=== PATIENT | female | born 1945 | race American Indian/Alaskan Native ===

== ENCOUNTER 2018-12-13 16:01 | Inpatient (IN) | payer MEDICARE, MEDICAID ==
[2018-12-13] MEDS ORDERED: ZOFRAN IV ONE (16:46)
[2018-12-13] MEDS ORDERED: ALUM-MAG HYDROX-SIMETH 200-200-20MG/5ML PO ONE (16:46)
[2018-12-13] MEDS ORDERED: LIDOCAINE VISCOUS 2% PO ONE (16:46)
--- NOTE | 2018-12-13 16:51 | Emergency Department Report ---
ED Chest Pain HPI - General Chief Complaint: Chest Pain Stated Complaint: CHEST PAIN Time Seen by Provider: 12/13/18 16:09 Source: patient Mode of arrival: Stretcher Limitations: No Limitations - History of Present Illness Initial Comments: 73-year-old female presents to ED with chest pain and upper abdominal pain onset 3 hours ago. Patient states pain feels as if pain is traveling across the top of her stomach over to the left side. Patient reports onset of pain approximately 30 minutes after eating a corey egg and cheese biscuit from [employer]. Patient also states that her caregiver brought her an iced coffee from there also, which she had for the first time today. Patient states it feels as if her stomach is full of gas. She reports it as an aching feeling. Reports nausea, no vomiting, no diarrhea. Patient states she drank some arabella nahomy, but that did not help. Patient reports she was recently diagnosed with DVT approximately one month ago, for which she takes Xarelto. Denies shortness of breath. PCP: Dr Jim FAGAN Complaint: chest pain -: hour(s) (3) Onset: after eating Pain Location: left chest, epigastric Severity: moderate Quality: aching Consistency: constant Improves With: nothing Worsens With: nothing re: nausea. denies: vomting, diaphoresis, dyspnea Other Symptoms: burping. denies: cough, fever, syncope, leg swelling Treatments Prior to Arrival: other (arabella nahomy) - Related Data Home Medications Medication Instructions Recorded Confirmed Last Taken Aspirin [Aspirin BABY CHEW TAB] 81 mg PO DAILY 09/05/14 10/02/14 10/01/14 Clopidogrel Bisulfate [Plavix] 75 mg PO DAILY 09/05/14 10/02/14 09/24/14 Glimepiride 4 mg PO BID 09/05/14 10/02/14 10/01/14 Losartan/Hydrochlorothiazide 1 tab PO DAILY 09/05/14 10/02/14 10/02/14 05:00 [Hyzaar 100-25 TAB] Rosuvastatin (Nf) [Crestor] 5 mg PO DAILY 09/05/14 10/02/14 10/01/14 Saxagliptin HCl [Onglyza] 5 mg PO DAILY 09/05/14 10/02/14 10/01/14 Previous Rx's Medication Instructions Recorded Last Taken Type HYDROcodone/APAP 5-325 [[place] 1 each PO Q6HR PRN #30 tablet 10/02/14 Unknown Rx 5-325 mg TAB] Ibuprofen [Motrin] 800 mg PO TID PRN #60 tablet 10/02/14 Unknown Rx Allergies Allergy/AdvReac Type Severity Reaction Status Date / Time codeine AdvReac Unknown Unknown Verified 09/05/14 09:01 Heart Score - HEART Score History: Slightly suspicious EKG: Normal Age: > 65 Risk factors: 1-2 risk factors Troponin: < normal limit HEART Score: 3 ED Review of Systems ROS: Stated complaint: CHEST PAIN Other details as noted in HPI Comment: All other systems reviewed and negative Constitutional: denies: chills, fever Respiratory: denies: shortness of breath Cardiovascular: chest pain Gastrointestinal: abdominal pain, nausea. denies: vomiting, diarrhea ED Past Medical Hx - Past Medical History Hx Hypertension: Yes Hx Heart Attack/AMI: No Hx Diabetes: Yes (SINCE 1984) Hx GERD: Yes Hx Asthma: No Additional medical history: colon ca (2010), uterine ca - Surgical History Past Surgical History?: Yes Additional Surgical History: colectomy, hysterectomy, hernia repair - Social History Smoking Status: Never Smoker Substance Use Type: None - Medications Home Medications: Home Medications Medication Instructions Recorded Confirmed Last Taken Type Aspirin [Aspirin BABY CHEW TAB] 81 mg PO DAILY 09/05/14 10/02/14 10/01/14 History Clopidogrel Bisulfate [Plavix] 75 mg PO DAILY 09/05/14 10/02/14 09/24/14 History Glimepiride 4 mg PO BID 09/05/14 10/02/14 10/01/14 History Losartan/Hydrochlorothiazide 1 tab PO DAILY 09/05/14 10/02/14 10/02/14 05:00 History [Hyzaar 100-25 TAB] Rosuvastatin (Nf) [Crestor] 5 mg PO DAILY 09/05/14 10/02/14 10/01/14 History Saxagliptin HCl [Onglyza] 5 mg PO DAILY 09/05/14 10/02/14 10/01/14 History HYDROcodone/APAP 5-325 [[place] 1 each PO Q6HR PRN #30 tablet 10/02/14 Unknown Rx 5-325 mg TAB] Ibuprofen [Motrin] 800 mg PO TID PRN #60 tablet 10/02/14 Unknown Rx ED Physical Exam - General Limitations: No Limitations General appearance: alert, in no apparent distress - Head Head exam: Present: atraumatic, normocephalic - Eye Eye exam: Present: normal appearance - ENT ENT exam: Present: mucous membranes moist - Neck Neck exam: Present: normal inspection - Respiratory Respiratory exam: Present: normal lung sounds bilaterally. Absent: respiratory distress - Cardiovascular Cardiovascular Exam: Present: normal rhythm, bradycardia - GI/Abdominal GI/Abdominal exam: Present: soft. Absent: distended, tenderness - Extremities Exam Extremities exam: Present: normal inspection - Neurological Exam Neurological exam: Present: alert, oriented X3 - Psychiatric Psychiatric exam: Present: normal affect, normal mood - Skin Skin exam: Present: warm, dry, intact, normal color ED Course Vital Signs 12/13/18 12/13/18 12/13/18 17:25 17:27 17:29 Pulse Rate 87 70 64 Respiratory 21 24 14 Rate Blood Pressure 146/102 146/102 146/102 12/13/18 12/13/18 12/13/18 17:31 17:33 17:35 Pulse Rate 58 L 58 L 57 L Respiratory 17 22 15 Rate Blood Pressure 146/102 146/102 146/102 12/13/18 12/13/18 12/13/18 17:37 17:39 17:41 Pulse Rate 55 L 53 L 52 L Respiratory 12 9 L 13 Rate Blood Pressure 146/102 146/102 146/102 12/13/18 12/13/18 12/13/18 17:43 17:45 17:47 Pulse Rate 52 L 52 L 53 L Respiratory 12 14 10 L Rate Blood Pressure 146/102 146/102 146/102 12/13/18 12/13/18 12/13/18 17:49 17:51 17:53 Pulse Rate 55 L 53 L 61 Respiratory 12 16 18 Rate Blood Pressure 146/102 146/102 146/102 12/13/18 12/13/18 12/13/18 17:55 17:57 17:59 Pulse Rate 64 70 57 L Respiratory 11 L 22 15 Rate Blood Pressure 146/102 146/102 146/102 12/13/18 12/13/18 12/13/18 18:01 18:03 18:05 Pulse Rate 53 L 53 L 54 L Respiratory 14 13 14 Rate Blood Pressure 146/102 146/102 146/102 12/13/18 12/13/18 12/13/18 18:07 18:09 18:10 Pulse Rate 54 L 58 L 57 L Respiratory 15 14 21 Rate Blood Pressure 146/102 146/102 146/102 12/13/18 12/13/18 12/13/18 18:13 18:15 18:17 Pulse Rate 71 74 64 Respiratory 18 15 20 Rate Blood Pressure 146/102 146/102 146/102 12/13/18 12/13/18 12/13/18 18:19 18:21 18:23 Pulse Rate 54 L 53 L 53 L Respiratory 13 14 12 Rate Blood Pressure 146/102 146/102 146/102 12/13/18 12/13/18 12/13/18 18:25 18:27 18:29 Pulse Rate 57 L 53 L 56 L Respiratory 14 14 10 L Rate Blood Pressure 146/102 146/102 146/102 12/13/18 12/13/18 12/13/18 18:31 18:33 18:35 Pulse Rate 58 L 61 62 Respiratory 11 L 9 L 13 Rate Blood Pressure 146/102 146/102 146/102 12/13/18 12/13/18 12/13/18 18:37 18:39 18:41 Pulse Rate 62 66 55 L Respiratory 17 13 15 Rate Blood Pressure 146/102 146/102 146/102 12/13/18 12/13/18 12/13/18 18:43 18:45 18:47 Pulse Rate 61 54 L 59 L Respiratory 14 16 16 Rate Blood Pressure 146/102 146/102 146/102 12/13/18 12/13/18 12/13/18 18:49 18:51 18:53 Pulse Rate 62 55 L 60 Respiratory 13 12 15 Rate Blood Pressure 146/102 146/102 146/102 12/13/18 12/13/18 12/13/18 18:55 18:57 18:59 Pulse Rate 56 L 56 L 63 Respiratory 18 13 15 Rate Blood Pressure 146/102 146/102 146/102 12/13/18 12/13/18 12/13/18 19:01 19:03 19:05 Pulse Rate 56 L 54 L 54 L Respiratory 15 12 10 L Rate Blood Pressure 146/102 146/102 146/102 12/13/18 12/13/18 12/13/18 19:15 19:17 19:19 Pulse Rate 57 L 53 L 52 L Respiratory 14 17 16 Rate Blood Pressure 151/70 151/70 151/70 - Consultations Consultation #1: 12/14/18 00:43 Spoke w/ Dr Nair. States pt should be admitted for removal of gallbladder. ED Medical Decision Making - Lab Data Result diagrams: 12/13/18 16:52 12/13/18 16:52 - EKG Data -: EKG Interpreted by Oh EKG shows normal: sinus rhythm, axis, intervals, QRS complexes, ST-T waves Rate: normal - EKG Data Interpretation: no acute changes, LVH - Radiology Data Radiology results: report reviewed, image reviewed - Medical Decision Making 73-year-old female also pancreatitis. The patient became symptomatic after eating corey and cheese biscuit at and jugular denies coffee from [employer]. Lipase 1700. CT shows a gallbladder with multiple gallstones present, mild cholecystectomy fluid, no biliary dilatation. LFTs normal, patient afebrile, normal WBCs. Spoke with general surgeon, plans to take pt to OR for cholecystectomy. Patient is pain free at this time. Spoke w/ Dr Steen, hospitalist, for admission. - Differential Diagnosis bowel obstruction, pancreatitis, gallstones, ACS Critical care attestation.: If time is entered above; I have spent that time in minutes in the direct care of this critically ill patient, excluding procedure time. ED Disposition Clinical Impression: Pancreatitis, gallstone Disposition: OP ADMIT IP TO THIS HOSP Is pt being admited?: Yes Condition: Stable Referrals: JUANITA HARRIS MD [Primary Care Provider] - 3-5 Days Time of Disposition: 00:44
[2018-12-13 17:07] LABS: Basophils # (Auto) 0.1 K/mm3 (0.0-0.1); Basophils % (Auto) 0.6 % (0.0-1.8); Eosinophils % (Auto) 0.3 % (0.0-4.3); Hematocrit 39.6 % (30.3-42.9); Hemoglobin 13.1 gm/dl (10.1-14.3); Lymphocytes # (Auto) 1.1 K/mm3 (1.2-5.4); Lymphocytes % (Auto) 10.2 % (13.4-35.0); Mean Corpuscular HGB Conc 33 % (30-34); Mean Corpuscular Volume 86 fl (79-97); Monocytes # (Auto) 0.9 K/mm3 (0.0-0.8); Monocytes % (Auto) 8.4 % (0.0-7.3); Platelet Count 263 K/mm3 (140-440)
[2018-12-13 17:19] LABS: BUN/Creatinine Ratio 17; Blood Urea Nitrogen 17 mg/dL (7-17); Calcium 9.3 mg/dL (8.4-10.2); Hemolysis Index 35; INR 1.45 (0.87-1.13)
[2018-12-13 17:20] LABS: Partial Thromboplastin Time 54.5 Sec. (24.2-36.6)
[2018-12-13 17:21] LABS: Albumin 4.2 g/dL (3.9-5); Bilirubin,Direct 0.7 mg/dL (0-0.2)
[2018-12-13] MEDS ORDERED: TORADOL IV ONE (18:22)
[2018-12-13] MEDS ORDERED: NACL 0.9% 1000 ML 1,000 ML IV ONE (18:23)
--- NOTE | 2018-12-13 21:22 | XRay Report ---
FINAL REPORT PROCEDURE: XR ABD SERIES W CXR 1V TECHNIQUE: Abdominal series complete, including supine and upright AP views of the abdomen and front al chest. HISTORY: pain COMPARISON: No prior studies are available for comparison. FINDINGS: Heart: Normal. Mediastinum/Vessels: Normal. Lungs/Pleural space: A large hiatal hernia is noted. Bowel gas pattern: Mild degree residual stool is noted. Intestinal gas is distributed predominantly i n nondistended colon.. Masses or calcifications: None. Bony structures: There is moderate degree dextroscoliosis of the thoracolumbar spine. Other: No free intraperitoneal air. IMPRESSION: No acute pulmonary process Nonspecific intestinal gas pattern Large hiatal hernia.
[2018-12-14] MEDS ORDERED: BENTYL IM ONE (00:07)
--- NOTE | 2018-12-14 00:09 | Cat Scan Report ---
FINAL REPORT PROCEDURE: CT ABDOMEN PELVIS W CON TECHNIQUE: Computerized axial tomography of the abdomen and pelvis was performed after the IV inject ion of iodinated nonionic contrast. HISTORY: abd pain COMPARISON: No prior studies are available for comparison. FINDINGS: Visualized lower thorax: No significant abnormality. Liver: Normal size and attenuation. Spleen: Normal size and attenuation. Gallbladder and biliary system: Multiple stones identified within the gallbladder lumen. Mild there c holecystic fluid is noted. No dilatation of the biliary ductal system. Pancreas: Normal. Adrenals: Normal. Kidneys: The kidneys have a normal appearance. No hydronephrosis.. GI tract: A large hiatal hernia is identified. No obstruction. The cecum, appendix and colon are norm al.. Lymph nodes and mesentery: Normal. Vasculature: Normal. Bladder: Normal. Reproductive organs: Normal. Peritoneum: No free fluid. Musculoskeletal structures: Moderate degenerative changes of spine there is mild left convex mid lumb ar curvature.. Other: None. IMPRESSION: There is no evidence of intestinal or urinary tract obstruction. No ileus or enteritis. There is a la rge fixed hiatal hernia. Cholelithiasis. Mild pericholecystic fluid is noted.
--- NOTE | 2018-12-14 02:32 | History and Physical Report ---
History of Present Illness Date of examination: 12/14/18 History of present illness: 73-year-old woman with history of hypertension, diabetes, uterine cancer, colon cancer, recent DVT comes to the emergency room with complaints of abdominal pain located in the epigastric area described as a hurting sensation, constant, started this morning after eating biscuit cheese and egg [place] from [employer]. Pain radiates to the left upper quadrant, left back, associated with nausea, intensity 5/10 Review of systems Constitutional: no weight loss, chills, fever Ears, eyes, nose, mouth and throat: no nasal congestion, no nasal discharge, no sinus pressure, no vision change, no red eye. Neck: No neck pain or rigidity. Cardiovascular: no palpitations, chest pain Respiratory: no cough, shortness of breath Gastrointestinal: no hematochezia Genitourinary : no frequency , no hematuria Musculoskeletal: no joint swelling or muscle ache Integumentary: no rash, no pruritis Neurological: no parathesias, no focal weakness Endocrine: no cold or heat intolerance, no polyuria or polydipsia Hematologic/Lymphatic: no easy bruising, no easy bleeding, no gland swelling Allergic/Immunologic: no urticaria, no angioedema. PAST MEDICAL HISTORY:hypertension, diabetes, uterine cancer, colon cancer PAST SURGICAL HISTORY: Colectomy, hysterectomy, hernia repair SOCIAL HISTORY: Denies alcohol, drugs, tobacco FAMILY HISTORY: Hypertension Medications and Allergies Allergies Allergy/AdvReac Type Severity Reaction Status Date / Time codeine AdvReac Unknown Unknown Verified 09/05/14 09:01 Home Medications Medication Instructions Recorded Confirmed Last Taken Type Clopidogrel Bisulfate [Plavix] 75 mg PO DAILY 09/05/14 10/02/14 09/24/14 History Glimepiride 4 mg PO BID 09/05/14 10/02/14 10/01/14 History Losartan/Hydrochlorothiazide 1 tab PO DAILY 09/05/14 10/02/14 10/02/14 05:00 History [Hyzaar 100-25 TAB] Rosuvastatin (Nf) [Crestor] 5 mg PO DAILY 09/05/14 10/02/14 10/01/14 History Saxagliptin HCl [Onglyza] 5 mg PO DAILY 09/05/14 10/02/14 10/01/14 History Acetaminophen [Acetaminophen TAB] 650 mg PO Q4H PRN #15 tablet 12/16/18 Unknown Rx HYDROcodone/APAP 5-325 [[place] 1 each PO Q6HR PRN #15 tablet 12/16/18 Unknown Rx 5-325 mg TAB] Rivaroxaban [Xarelto] 20 mg PO QDAY #30 tablet 12/16/18 Unknown Rx Ursodiol [Isabel] 250 mg PO TIDWM 30 Days tablet 12/16/18 Unknown Rx Active Meds: Active Medications Heparin Sodium/Sodium Chloride (Heparin/ 0.45% Nacl-25,000 Unit/500 Ml) 25,000 unit in 500 mls @ 23 mls/hr IV TITR SIMEON; Protocol Exam - Physical Exam Narrative exam: General Apperance: The patient lying in bed, breathing comfortable HEENT: Normocephalic, atraumatic. Pupils equally round and reactive to light, EOMI, no sclericterus or JVD or thyromegaly or nodule. , no carotid bruit, mucous membranes moist, no exudate or erythema Heart: S1-S2, regular is rhythm Lungs: Clear to auscultation bilaterally, breathing comfortable Abdomen: Positive bowel sounds, soft, nontender, nondistended, no organomegaly Extremities: No edema cyanosis clubbing Skin: no rash, nodule, warm and dry Neuro: cranial nerves 2-12 intact, speech is fluent, motor/sensory intact - Constitutional Vitals: Temp Pulse Resp BP Pulse Ox 52 L 16 151/70 12/13/18 19:19 12/13/18 19:19 12/13/18 19:19 Results - Labs CBC & Chem 7: 12/16/18 04:10 12/15/18 05:31 Labs: Abnormal lab results 12/13/18 12/13/18 12/13/18 Range/Units 16:52 16:52 16:52 Lymph % (Auto) 10.2 L (13.4-35.0) % Cros[place] % (Auto) 8.4 H (0.0-7.3) % Lymph # 1.1 L (1.2-5.4) K/mm3 Crosby # 0.9 H (0.0-0.8) K/mm3 Seg Neutrophils % 80.5 H (40.0-70.0) % Seg Neutrophils # 8.8 H (1.8-7.7) K/mm3 PT 18.6 H (12.2-14.9) Sec. INR 1.45 H (0.87-1.13) APTT 54.5 H (24.2-36.6) Sec. Sodium 136 L (137-145) mmol/L Chloride 97.1 L (98-107) mmol/L Glucose 361 H (65-100) mg/dL Direct Bilirubin (0-0.2) mg/dL AST (5-40) units/L Lipase (13-60) units/L 12/13/18 Range/Units 16:52 Lymph % (Auto) (13.4-35.0) % Cros[place] % (Auto) (0.0-7.3) % Lymph # (1.2-5.4) K/mm3 Crosby # (0.0-0.8) K/mm3 Seg Neutrophils % (40.0-70.0) % Seg Neutrophils # (1.8-7.7) K/mm3 PT (12.2-14.9) Sec. INR (0.87-1.13) APTT (24.2-36.6) Sec. Sodium (137-145) mmol/L Chloride (98-107) mmol/L Glucose (65-100) mg/dL Direct Bilirubin 0.7 H (0-0.2) mg/dL AST 59 H (5-40) units/L Lipase 1783 H (13-60) units/L - Imaging and Cardiology Abdominal x-ray: report reviewed CT scan - abdomen: report reviewed CT scan - pelvis: report reviewed Assessment and Plan Assessment Gallstone pancreatitis DVT in the right groin hypertension diabetes uterine cancer colon cancer Plan Admit to medicine Place him bowel rest, IV fluids, IV morphine start heparin drip for DVT Surgery was consulted to see the patient DVT prophylaxis
[2018-12-14 02:39] LABS: INR 1.34 (0.87-1.13)
[2018-12-14 02:40] LABS: Partial Thromboplastin Time 41.5 Sec. (24.2-36.6)
[2018-12-14] MEDS ORDERED: ZOFRAN IV PRN (02:40)
[2018-12-14] MEDS ORDERED: SODIUM CHLORIDE FLUSH SYRINGE 10 ML IV PRN (02:40)
[2018-12-14] MEDS ORDERED: TYLENOL PO PRN (02:40)
[2018-12-14] MEDS ORDERED: MORPHINE IV PRN (02:40)
[2018-12-14] MEDS: HEPARIN/ 0.45% NACL-25,000 UNIT/500 ML 25,000 UNIT/500 ML BAG IV SCH (02:55)
[2018-12-14] MEDS ORDERED: D50W (25GM) Syringe IV PRN ×2 (03:50→17:47)
--- NOTE | 2018-12-14 07:55 | Consultation ---
History of Present Illness Consult date: 12/14/18 Reason for consult: abdominal pain Requesting physician: GRADY LEVINE Chief complaint: acute onset of abdominal pain - History of present illness History of present illness: 73yo F with multiple medical problems presented last night to the emergency department with an acute onset of upper abdominal pain after having lunch from [employer]. She's never had anything like this before. It is located in the upper middle of the abdominal area and extends to the left side. Feels like it's under the left breast. It does go a little bit into the back. Had nausea and vomiting with medication. No fevers or chills. Pain has completely resolved now. She had a bowel movement yesterday which make no difference. She had a hard time finding a comfortable position. She was on Xarelto now for the blood clot that was diagnosed recently. She stopped taking her Plavix at that time. She reports that she was taking Plavix for a previous blood clot for many years. Past History Past Medical History: cancer (colon and uterine), diabetes, DVT (right leg - 1 month ago), GERD, hypertension. denies: acute HI, stroke Past Surgical History: hysterectomy (2014 - Dr. Brice. Uterine cancer), hernia repair (Dr. Elvira Alba. 2014. Right abdominal area-not sure exactly where), bowel surgery (partial colectomy in 2010 - Dr. Restrepo. Stage 3. Had chemotherapy), Other (port placement and removal) Social history: denies: smoking, alcohol abuse Family history: no significant family history Medications and Allergies Allergies Allergy/AdvReac Type Severity Reaction Status Date / Time codeine AdvReac Unknown Unknown Verified 09/05/14 09:01 Home Medications Medication Instructions Recorded Confirmed Last Taken Type Aspirin [Aspirin BABY CHEW TAB] 81 mg PO DAILY 09/05/14 10/02/14 10/01/14 History Clopidogrel Bisulfate [Plavix] 75 mg PO DAILY 09/05/14 10/02/14 09/24/14 History Glimepiride 4 mg PO BID 09/05/14 10/02/14 10/01/14 History Losartan/Hydrochlorothiazide 1 tab PO DAILY 09/05/14 10/02/14 10/02/14 05:00 History [Hyzaar 100-25 TAB] Rosuvastatin (Nf) [Crestor] 5 mg PO DAILY 09/05/14 10/02/14 10/01/14 History Saxagliptin HCl [Onglyza] 5 mg PO DAILY 09/05/14 10/02/14 10/01/14 History HYDROcodone/APAP 5-325 [[place] 1 each PO Q6HR PRN #30 tablet 10/02/14 Unknown Rx 5-325 mg TAB] Ibuprofen [Motrin] 800 mg PO TID PRN #60 tablet 10/02/14 Unknown Rx Active Meds: Active Medications Acetaminophen (Tylenol) 650 mg PO Q4H PRN PRN Reason: Pain MILD(1-3)/Fever >100.5/MONTERO Dextrose (D50w (25gm) Syringe) 50 ml IV PRN PRN PRN Reason: Hypoglycemia Heparin Sodium/Sodium Chloride (Heparin/ 0.45% Nacl-25,000 Unit/500 Ml) 25,000 unit in 500 mls @ 23 mls/hr IV TITR SIMEON; Protocol Last Admin: 12/14/18 02:55 Dose: 1,150 units/hr, 23 mls/hr Documented by: Morphine Sulfate (Morphine) 2 mg IV Q4H PRN PRN Reason: Pain, Moderate (4-6) Ondansetron HCl (Zofran) 4 mg IV Q4H PRN PRN Reason: Nausea And Vomiting Sodium Chloride (Sodium Chloride Flush Syringe 10 Ml) 10 ml IV BID SIMEON Sodium Chloride (Sodium Chloride Flush Syringe 10 Ml) 10 ml IV PRN PRN PRN Reason: LINE FLUSH Review of Systems - Constitutional weakness, no fever, no chills, no chronic pain - Cardiovascular chest pain, no shortness of breath - Respiratory no cough - Gastrointestinal abdominal pain, nausea, vomiting, no diarrhea, no constipation, no change in bowel habits, no hematemesis, no coffee ground emesis, no BRBPR, no melena, no hematochezia - Genitourinary Genitourinary: no dysuria - Muskuloskeletal no low back pain - Integumentary no pruritis, no redness, no sores, no wounds Exam Vital Signs Pulse Resp BP 87 21 146/102 12/13/18 17:25 12/13/18 17:25 12/13/18 17:25 - General physical appearance Positive: no distress, no pain, other (pleasant. does not appear ill) - Eyes Positive: normal occular movement. Negative: icteric - Respiratory Positive: normal expansion, normal respiratory effort, clear to auscultation - Cardiovascular Rhythm: regular - Abdomen Abdomen: Present: soft, bowel sounds normal, surgical scars (well healed midline incision. Unable to clearly find incision from right abdominal wall hernia repair.). Absent: tender, distended, guarding, rigid, wound - Integumentary no rash, no growths, no abnormal pigmentation - Neurologic Neurologic: alert and oriented to time, place and person, motor strength and sensation are grossly intact - Psychiatric Psychiatric: appropriate mood/affect, intact judgment & insight Results - Labs 12/13/18 16:52 12/13/18 16:52 Abnormal lab results 12/13/18 12/13/18 12/13/18 Range/Units 16:52 16:52 16:52 Lymph % (Auto) 10.2 L (13.4-35.0) % [place] % (Auto) 8.4 H (0.0-7.3) % Lymph # 1.1 L (1.2-5.4) K/mm3 [place] # 0.9 H (0.0-0.8) K/mm3 Seg Neutrophils % 80.5 H (40.0-70.0) % Seg Neutrophils # 8.8 H (1.8-7.7) K/mm3 PT 18.6 H (12.2-14.9) Sec. INR 1.45 H (0.87-1.13) APTT 54.5 H (24.2-36.6) Sec. Sodium 136 L (137-145) mmol/L Chloride 97.1 L (98-107) mmol/L Glucose 361 H (65-100) mg/dL Direct Bilirubin (0-0.2) mg/dL AST (5-40) units/L Lipase (13-60) units/L 12/13/18 12/14/18 Range/Units 16:52 02:13 Lymph % (Auto) (13.4-35.0) % [place] % (Auto) (0.0-7.3) % Lymph # (1.2-5.4) K/mm3 Walker # (0.0-0.8) K/mm3 Seg Neutrophils % (40.0-70.0) % Seg Neutrophils # (1.8-7.7) K/mm3 PT 17.4 H (12.2-14.9) Sec. INR 1.34 H (0.87-1.13) APTT 41.5 H (24.2-36.6) Sec. Sodium (137-145) mmol/L Chloride (98-107) mmol/L Glucose (65-100) mg/dL Direct Bilirubin 0.7 H (0-0.2) mg/dL AST 59 H (5-40) units/L Lipase 1783 H (13-60) units/L Diabetes panel 12/13/18 12/13/18 Range/Units 16:52 16:52 Sodium 136 L (137-145) mmol/L Potassium 4.5 (3.6-5.0) mmol/L Chloride 97.1 L (98-107) mmol/L Carbon Dioxide 23 (22-30) mmol/L BUN 17 (7-17) mg/dL Creatinine 1.0 (0.7-1.2) mg/dL Glucose 361 H (65-100) mg/dL Calcium 9.3 (8.4-10.2) mg/dL AST 59 H (5-40) units/L ALT 25 (7-56) units/L Alkaline Phosphatase 89 (35-129) units/L Total Protein 7.8 (6.3-8.2) g/dL Albumin 4.2 (3.9-5) g/dL Calcium panel 12/13/18 12/13/18 Range/Units 16:52 16:52 Calcium 9.3 (8.4-10.2) mg/dL Albumin 4.2 (3.9-5) g/dL Pituitary panel 12/13/18 Range/Units 16:52 Sodium 136 L (137-145) mmol/L Potassium 4.5 (3.6-5.0) mmol/L Chloride 97.1 L (98-107) mmol/L Carbon Dioxide 23 (22-30) mmol/L BUN 17 (7-17) mg/dL Creatinine 1.0 (0.7-1.2) mg/dL Glucose 361 H (65-100) mg/dL Calcium 9.3 (8.4-10.2) mg/dL Adrenal panel 12/13/18 12/13/18 Range/Units 16:52 16:52 Sodium 136 L (137-145) mmol/L Potassium 4.5 (3.6-5.0) mmol/L Chloride 97.1 L (98-107) mmol/L Carbon Dioxide 23 (22-30) mmol/L BUN 17 (7-17) mg/dL Creatinine 1.0 (0.7-1.2) mg/dL Glucose 361 H (65-100) mg/dL Calcium 9.3 (8.4-10.2) mg/dL Total Bilirubin 1.10 (0.1-1.2) mg/dL AST 59 H (5-40) units/L ALT 25 (7-56) units/L Alkaline Phosphatase 89 (35-129) units/L Total Protein 7.8 (6.3-8.2) g/dL Albumin 4.2 (3.9-5) g/dL - Imaging Chest x-ray: report reviewed, image reviewed Abdominal x-ray: report reviewed, image reviewed CT scan - abdomen: report reviewed, image reviewed CT scan - pelvis: report reviewed, image reviewed Assessment and Plan - Patient Problems (1) Pancreatitis, gallstone Current Visit: Yes Status: Acute Plan to address problem: Pt stable. By history and exam, patient appears to have had very mild pancreatitis. Her symptoms have resolved. I will start her on a liquid diet. The CT scan shows minimal gallstones. Will get a formal ultrasound to get a better assessment. Labs will be repeated in the morning to reassess her pancreatitis. As for management, once the ultrasound is done and I have a better assessment of the gallbladder, I will discuss surgical versus medical options with her. Normally for gallstone pancreatitis, we would recommend cholecystectomy. However, in this case, patient is apprehensive about surgery. Therefore, we will also discuss possible medical management with Ursodiol. She also has apparently asymptomtic hernias at the midline incision and hiatus. Neither need to be addressed at this time. If we decide on surgery, she will need cardiac clearance. She reports that she sees Dr. Jerome. As for anticoagulation, consideration could be given to bridging her with james enox instead of heparin to make the management easier. Will follow along. Please call with questions. Time=45min
[2018-12-14 08:58] LABS: Calcium 8.9 mg/dL (8.4-10.2)
[2018-12-14 08:59] LABS: Basophils # (Auto) 0.1 K/mm3 (0.0-0.1); Basophils % (Auto) 0.8 % (0.0-1.8); Eosinophils # (Auto) 0.1 K/mm3 (0.0-0.4); Eosinophils % (Auto) 0.8 % (0.0-4.3); Hematocrit 35.7 % (30.3-42.9); Hemoglobin 12.3 gm/dl (10.1-14.3); Lymphocytes % (Auto) 25.7 % (13.4-35.0); Mean Corpuscular HGB Conc 34 % (30-34); Mean Corpuscular Volume 85 fl (79-97); Monocytes # (Auto) 0.7 K/mm3 (0.0-0.8); Monocytes % (Auto) 9.6 % (0.0-7.3); Platelet Count 247 K/mm3 (140-440); Red Blood Count 4.18 M/mm3 (3.65-5.03)
[2018-12-14] MEDS: SODIUM CHLORIDE FLUSH SYRINGE 10 ML IV SCH ×2 (10:00→22:29)
--- NOTE | 2018-12-14 17:46 | Progress Note ---
Assessment and Plan Assessment and plan: Patient is a 73 yo woman with history of hypertension, DM type 2, uterine cancer, colon cancer, DVT dx 1 month ago on Xarelto who presented to [facility] ED with abdominal pain that started after eating biscuit egg and cheese [place] from [employer]. * CT abd/pelvis with Contrast IMPRESSION: There is no evidence of intestinal or urinary tract obstruction. No ileus or enteritis. There is a large fixed hiat al hernia. Cholelithiasis. Mild pericholecystic fluid is noted. * pCXR/Abd XRAY IMPRESSION: No acute pulmonary process Nonspecific intestinal gas pattern Large hiatal hernia. Gallstone pancreatitis: bowel rest, iv pain control, ivf, consulted GS DVT in the right groin: A/C with iv heparin until she starts a diet then switch back to Xarelto Hypertension: low salt diet Diabetes Mellitus type 2: SSI Uterine and colon cancer by history with hypercoaguable state prolonged inpatient services 32 minutes History Interval history: Patient was seen and examined. Follow-up on current diagnosis GS pancreatitis. Overnight uneventful. Patient denies any chest pain, shortness breath, or severe headaches. Imaging, nursing note, chart, labs and old chart reviewed. Discussed with patient. Hospitalist Physical - Physical exam Narrative exam: Gen: WDWN, NAD, Awake, Alert, Orientated HEENT: NCAT, EOMI, PERRL, OP Clear Neck: supple, no adenopathy, no thyromegaly, no JVD CVS/Heart: RRR, normal S1S2, pulses present bilaterally Chest/Lungs: CTA B, Symmetrical chest expansion, good air entry bilaterally GI/Abdomen: soft, tenderness not distended, good bowel sounds, no rebound /Bladder: no suprapubic tenderness, no CVA or paraspinal tenderness Extermity/Skin: no c/c/e, no obvious rash MSK: FROM x 4 Neuro: CN 2-12 grossly intact, no new focal deficits Psych: calm - Constitutional Vitals: Temp Pulse Resp BP Pulse Ox 98.2 F 65 18 141/59 99 12/14/18 15:45 12/14/18 15:45 12/14/18 15:45 12/14/18 15:45 12/14/18 15:45 Results - Labs CBC & Chem 7: 12/14/18 08:37 12/14/18 08:37 Labs: Laboratory Last Values WBC 7.7 K/mm3 (4.5-11.0) 12/14/18 08:37 RBC 4.18 M/mm3 (3.65-5.03) 12/14/18 08:37 Hgb 12.3 gm/dl (10.1-14.3) 12/14/18 08:37 Hct 35.7 % (30.3-42.9) 12/14/18 08:37 MCV 85 fl (79-97) 12/14/18 08:37 MCH 29 pg (28-32) 12/14/18 08:37 MCHC 34 % (30-34) 12/14/18 08:37 RDW 14.0 % (13.2-15.2) 12/14/18 08:37 Plt Count 247 K/mm3 (140-440) 12/14/18 08:37 Lymph % (Auto) 25.7 % (13.4-35.0) 12/14/18 08:37 [place] % (Auto) 9.6 % (0.0-7.3) H 12/14/18 08:37 Eos % (Auto) 0.8 % (0.0-4.3) 12/14/18 08:37 Baso % (Auto) 0.8 % (0.0-1.8) 12/14/18 08:37 Lymph # 2.0 K/mm3 (1.2-5.4) 12/14/18 08:37 [place] # 0.7 K/mm3 (0.0-0.8) 12/14/18 08:37 Eos # 0.1 K/mm3 (0.0-0.4) 12/14/18 08:37 Baso # 0.1 K/mm3 (0.0-0.1) 12/14/18 08:37 Seg Neutrophils % 63.1 % (40.0-70.0) 12/14/18 08:37 Seg Neutrophils # 4.9 K/mm3 (1.8-7.7) 12/14/18 08:37 PT 17.4 Sec. (12.2-14.9) H 12/14/18 02:13 INR 1.34 (0.87-1.13) H 12/14/18 02:13 APTT 41.5 Sec. (24.2-36.6) H 12/14/18 02:13 Heparin Anti-Xa Level 0.75 U.I./ml (0.3-0.7) H 12/14/18 16:10 Sodium 138 mmol/L (137-145) 12/14/18 08:37 Potassium 3.8 mmol/L (3.6-5.0) 12/14/18 08:37 Chloride 101.8 mmol/L (98-107) 12/14/18 08:37 Carbon Dioxide 23 mmol/L (22-30) 12/14/18 08:37 Anion Gap 17 mmol/L 12/14/18 08:37 BUN 17 mg/dL (7-17) 12/14/18 08:37 Creatinine 1.1 mg/dL (0.7-1.2) 12/14/18 08:37 Estimated GFR 59 ml/min 12/14/18 08:37 BUN/Creatinine Ratio 15 % 12/14/18 08:37 Glucose 231 mg/dL (65-100) H 12/14/18 08:37 POC Glucose 225 (70-105) H 12/14/18 11:54 Calcium 8.9 mg/dL (8.4-10.2) 12/14/18 08:37 Total Bilirubin 1.10 mg/dL (0.1-1.2) 12/13/18 16:52 Direct Bilirubin 0.7 mg/dL (0-0.2) H 12/13/18 16:52 Indirect Bilirubin 0.4 mg/dL 12/13/18 16:52 AST 59 units/L (5-40) H 12/13/18 16:52 ALT 25 units/L (7-56) 12/13/18 16:52 Alkaline Phosphatase 89 units/L (35-129) 12/13/18 16:52 Troponin T < 0.010 ng/mL (0.00-0.029) 12/13/18 22:48 Total Protein 7.8 g/dL (6.3-8.2) 12/13/18 16:52 Albumin 4.2 g/dL (3.9-5) 12/13/18 16:52 Albumin/Globulin Ratio 1.2 % 12/13/18 16:52 Lipase 1783 units/L (13-60) H 12/13/18 16:52 Nutrition/Malnutrition Assess - Dietary Evaluation Nutrition/Malnutrition Findings: Nutrition Notes Start: 12/14/18 13:53 Freq: Status: Active Protocol: Document 12/14/18 13:53 RM (Rec: 12/14/18 13:55 RM [id number]) Nutrition Notes [place] Body Weight (kg) 0
--- NOTE | 2018-12-14 22:32 | Ultrasound Report ---
PROCEDURE: US ABDOMEN LIMITED TECHNIQUE: Routine imaging was obtained of the right upper quadrant. HISTORY: evaluate gallbladder and biliary system COMPARISONS: None FINDINGS: There are multiple dependent stones in the gallbladder fundus. There is generalized gallbladder wall thickening measuring 6 mm in thickness. There is pericholecystic fluid around the gallbladder. A Murp hy's sign was not elicited. The common bile duct is normal caliber at 3.9 mm. The liver is normal in size and echotexture. The pancreas is not well seen. The right kidney is normal in size and shows no evidence of hydronephrosis. It measures 9.7 x 4.2 x 3.6 cm. The IVC is patent. Proximally the abdomin al aorta is normal in caliber. IMPRESSION: Gallstones with generalized gallbladder wall thickening and mild pericholecystic fluid. A Montelongo's si gn was not elicited. Chronic cholecystitis still cannot be excluded.. This document is electronically signed by Gary Gonzalez MD., December 14 2018 10:30:03 PM ET
[2018-12-15] MEDS: HumaLOG SUB-Q SCH ×5 (00:11→23:03)
[2018-12-15] MEDS: HEPARIN/ 0.45% NACL-25,000 UNIT/500 ML 25,000 UNIT/500 ML BAG IV SCH (01:52)
[2018-12-15 06:37] LABS: Hematocrit 36.5 % (30.3-42.9); Hemoglobin 12.1 gm/dl (10.1-14.3); Mean Corpuscular HGB Conc 33 % (30-34); Mean Corpuscular Volume 87 fl (79-97); Platelet Count 239 K/mm3 (140-440); Red Blood Count 4.22 M/mm3 (3.65-5.03); Red Cell Distribution Width 14.2 % (13.2-15.2)
[2018-12-15 06:59] LABS: Albumin 3.4 g/dL (3.9-5); Calcium 8.8 mg/dL (8.4-10.2)
--- NOTE | 2018-12-15 08:28 | Progress Note ---
Assessment and Plan - Patient Problems (1) Pancreatitis, gallstone Current Visit: Yes Status: Acute Plan to address problem: Pt stable. Lipase has normalized. Patient continues to have no abdominal pain or nausea or vomiting. She is tolerating liquid diet. We discussed medical versus surgical therapy for the gallstone pancreatitis. After answering her questions and discussing the risks and benefits, we have decided to try medical therapy 1st. I will order Actigall to start today. Her LFTs did go up today. I think this is a delayed effect of having a brief blockage. As she is asymptomatic, will hold off on MRCP/ERCP. I will recheck the labs tomorrow. I expect that they should come down over the weekend. Once they are coming down and we are sure that she is tolerating the new medicine, her diet may be advanced and she may be discharged home. She also has apparently asymptomtic hernias at the midline incision and hiatus. Neither need to be addressed at this time. If we decide on surgery, she will need cardiac clearance. She reports that she sees Dr. Jerome. As for anticoagulation, consideration could be given to bridging her with lovenox instead of heparin to make the management easier. Discussed with Dr. Harris Will follow along. Please call with questions. Time=15min Subjective Date of service: 12/15/18 Patient Reports: Positive: no new complaints, tolerating liquids well, other (no abdominal pain). Negative: nausea, vomiting Objective Vital Signs - 12hr 12/14/18 12/15/18 12/15/18 21:13 00:06 00:21 Temperature 97.8 F Pulse Rate 45 L 49 L Respiratory 20 18 Rate Blood Pressure 135/59 123/57 O2 Sat by Pulse 99 96 97 Oximetry 12/15/18 12/15/18 04:27 06:58 Temperature 97.8 F 97.8 F Pulse Rate 48 L 55 L Respiratory 20 22 Rate Blood Pressure 132/60 148/59 O2 Sat by Pulse 97 97 Oximetry - General physical appearance no distress, no pain, other (looks well) - Eyes normal occular movement - Respiratory normal expansion, normal respiratory effort - Abdomen soft, not tender, not distended, not guarding, not rigid - Psychiatric oriented to time, oriented to person, oriented to place, speech is normal, memory intact - Labs 12/15/18 05:31 12/15/18 05:31 Diabetes panel 12/14/18 12/15/18 Range/Units 08:37 05:31 Sodium 138 140 (137-145) mmol/L Potassium 3.8 3.9 (3.6-5.0) mmol/L Chloride 101.8 104.1 (98-107) mmol/L Carbon Dioxide 23 23 (22-30) mmol/L BUN 17 12 (7-17) mg/dL Creatinine 1.1 1.2 (0.7-1.2) mg/dL Glucose 231 H 136 H (65-100) mg/dL Calcium 8.9 8.8 (8.4-10.2) mg/dL AST 208 H (5-40) units/L ALT 249 H (7-56) units/L Alkaline Phosphatase 84 (35-129) units/L Total Protein 6.6 (6.3-8.2) g/dL Albumin 3.4 L (3.9-5) g/dL Calcium panel 12/14/18 12/15/18 Range/Units 08:37 05:31 Calcium 8.9 8.8 (8.4-10.2) mg/dL Albumin 3.4 L (3.9-5) g/dL Pituitary panel 12/14/18 12/15/18 Range/Units 08:37 05:31 Sodium 138 140 (137-145) mmol/L Potassium 3.8 3.9 (3.6-5.0) mmol/L Chloride 101.8 104.1 (98-107) mmol/L Carbon Dioxide 23 23 (22-30) mmol/L BUN 17 12 (7-17) mg/dL Creatinine 1.1 1.2 (0.7-1.2) mg/dL Glucose 231 H 136 H (65-100) mg/dL Calcium 8.9 8.8 (8.4-10.2) mg/dL Adrenal panel 12/14/18 12/15/18 Range/Units 08:37 05:31 Sodium 138 140 (137-145) mmol/L Potassium 3.8 3.9 (3.6-5.0) mmol/L Chloride 101.8 104.1 (98-107) mmol/L Carbon Dioxide 23 23 (22-30) mmol/L BUN 17 12 (7-17) mg/dL Creatinine 1.1 1.2 (0.7-1.2) mg/dL Glucose 231 H 136 H (65-100) mg/dL Calcium 8.9 8.8 (8.4-10.2) mg/dL Total Bilirubin 1.60 H (0.1-1.2) mg/dL AST 208 H (5-40) units/L ALT 249 H (7-56) units/L Alkaline Phosphatase 84 (35-129) units/L Total Protein 6.6 (6.3-8.2) g/dL Albumin 3.4 L (3.9-5) g/dL - Imaging US - abdomen: report reviewed, image reviewed
[2018-12-15] MEDS: SODIUM CHLORIDE FLUSH SYRINGE 10 ML IV SCH ×2 (10:00→22:20)
[2018-12-15] MEDS: URSO PO SCH (17:37)
--- NOTE | 2018-12-15 20:40 | Progress Note ---
Assessment and Plan Assessment and plan: Patient is a 73 yo woman with history of hypertension, DM type 2, uterine cancer, colon cancer, DVT dx 1 month ago on Xarelto who [facility] with abdominal pain that started after eating biscuit egg and cheese [place] from [employer]. * CT abd/pelvis with Contrast IMPRESSION: There is no evidence of intestinal or urinary tract obstruction. No ileus or enteritis. There is a large fixed hiat al hernia. Cholelithiasis. Mild pericholecystic fluid is noted. * pCXR/Abd XRAY IMPRESSION: No acute pulmonary process Nonspecific intestinal gas pattern Large hiatal hernia. Gallstone pancreatitis: bowel rest to advance diet, iv pain control, ivf, GS following, pt hesitant for surgery. DVT in the right groin: A/C with iv heparin until she starts a diet then switch back to Xarelto Hypertension: low salt diet Diabetes Mellitus type 2: SSI Uterine and colon cancer by history with hypercoagable state History Interval history: Patient was seen and examined. Follow-up on current diagnosis GS pancreatitis. Overnight uneventful. Patient denies any chest pain, shortness breath, or severe headaches. Imaging, nursing note, chart, labs and old chart reviewed. Discussed with patient. Hospitalist Physical - Physical exam Narrative exam: Gen: WDWN, NAD, Awake, Alert, Orientated HEENT: NCAT, EOMI, PERRL, OP Clear Neck: supple, no adenopathy, no thyromegaly, no JVD CVS/Heart: RRR, normal S1S2, pulses present bilaterally Chest/Lungs: CTA B, Symmetrical chest expansion, good air entry bilaterally GI/Abdomen: soft, tenderness not distended, good bowel sounds, no rebound /Bladder: no suprapubic tenderness, no CVA or paraspinal tenderness Extermity/Skin: no c/c/e, no obvious rash MSK: FROM x 4 Neuro: CN 2-12 grossly intact, no new focal deficits Psych: calm - Constitutional Vitals: Temp Pulse Resp BP Pulse Ox 98.1 F 52 L 20 151/71 98 12/15/18 19:35 12/15/18 19:35 12/15/18 19:35 12/15/18 19:35 12/15/18 19:35 Results - Labs CBC & Chem 7: 12/15/18 05:31 12/15/18 05:31 Labs: Laboratory Last Values WBC 7.2 K/mm3 (4.5-11.0) 12/15/18 05:31 RBC 4.22 M/mm3 (3.65-5.03) 12/15/18 05:31 Hgb 12.1 gm/dl (10.1-14.3) 12/15/18 05:31 Hct 36.5 % (30.3-42.9) 12/15/18 05:31 MCV 87 fl (79-97) 12/15/18 05:31 MCH 29 pg (28-32) 12/15/18 05:31 MCHC 33 % (30-34) 12/15/18 05:31 RDW 14.2 % (13.2-15.2) 12/15/18 05:31 Plt Count 239 K/mm3 (140-440) 12/15/18 05:31 Lymph % (Auto) 25.7 % (13.4-35.0) 12/14/18 08:37 [place] % (Auto) 9.6 % (0.0-7.3) H 12/14/18 08:37 Eos % (Auto) 0.8 % (0.0-4.3) 12/14/18 08:37 Baso % (Auto) 0.8 % (0.0-1.8) 12/14/18 08:37 Lymph # 2.0 K/mm3 (1.2-5.4) 12/14/18 08:37 [place] # 0.7 K/mm3 (0.0-0.8) 12/14/18 08:37 Eos # 0.1 K/mm3 (0.0-0.4) 12/14/18 08:37 Baso # 0.1 K/mm3 (0.0-0.1) 12/14/18 08:37 Seg Neutrophils % 63.1 % (40.0-70.0) 12/14/18 08:37 Seg Neutrophils # 4.9 K/mm3 (1.8-7.7) 12/14/18 08:37 PT 17.4 Sec. (12.2-14.9) H 12/14/18 02:13 INR 1.34 (0.87-1.13) H 12/14/18 02:13 APTT 41.5 Sec. (24.2-36.6) H 12/14/18 02:13 Heparin Anti-Xa Level 1.07 U.I./ml (0.3-0.7) H 12/15/18 15:30 Sodium 140 mmol/L (137-145) 12/15/18 05:31 Potassium 3.9 mmol/L (3.6-5.0) 12/15/18 05:31 Chloride 104.1 mmol/L (98-107) 12/15/18 05:31 Carbon Dioxide 23 mmol/L (22-30) 12/15/18 05:31 Anion Gap 17 mmol/L 12/15/18 05:31 BUN 12 mg/dL (7-17) 12/15/18 05:31 Creatinine 1.2 mg/dL (0.7-1.2) 12/15/18 05:31 Estimated GFR 53 ml/min 12/15/18 05:31 BUN/Creatinine Ratio 10 % 12/15/18 05:31 Glucose 136 mg/dL (65-100) H 12/15/18 05:31 POC Glucose 237 (70-105) H 12/15/18 16:20 Calcium 8.8 mg/dL (8.4-10.2) 12/15/18 05:31 Total Bilirubin 1.60 mg/dL (0.1-1.2) H 12/15/18 05:31 Direct Bilirubin 0.7 mg/dL (0-0.2) H 12/13/18 16:52 Indirect Bilirubin 0.4 mg/dL 12/13/18 16:52 AST 208 units/L (5-40) H 12/15/18 05:31 ALT 249 units/L (7-56) H 12/15/18 05:31 Alkaline Phosphatase 84 units/L (35-129) 12/15/18 05:31 Troponin T < 0.010 ng/mL (0.00-0.029) 12/13/18 22:48 Total Protein 6.6 g/dL (6.3-8.2) 12/15/18 05:31 Albumin 3.4 g/dL (3.9-5) L 12/15/18 05:31 Albumin/Globulin Ratio 1.1 % 12/15/18 05:31 Lipase 46 units/L (13-60) 12/15/18 05:31 Nutrition/Malnutrition Assess - Dietary Evaluation Nutrition/Malnutrition Findings: Nutrition Notes Start: 12/14/18 13:53 Freq: Status: Active Protocol: Document 12/14/18 13:53 RM (Rec: 12/14/18 13:55 RM [id number]) Nutrition Notes [place] Body Weight (kg) 0
[2018-12-16 05:09] LABS: Hemoglobin 11.4 gm/dl (10.1-14.3); Mean Corpuscular HGB Conc 34 % (30-34); Mean Corpuscular Volume 86 fl (79-97); Platelet Count 219 K/mm3 (140-440); Red Blood Count 3.95 M/mm3 (3.65-5.03); Red Cell Distribution Width 14.1 % (13.2-15.2)
[2018-12-16 05:37] LABS: Albumin 3.3 g/dL (3.9-5); Bilirubin,Direct 0.3 mg/dL (0-0.2)
[2018-12-16] MEDS: HumaLOG SUB-Q SCH ×2 (06:47→12:25)
[2018-12-16] MEDS: URSO PO SCH ×2 (08:24→12:03)
--- NOTE | 2018-12-16 12:15 | Progress Note ---
Assessment and Plan - Patient Problems (1) Pancreatitis, gallstone Current Visit: Yes Status: Acute Plan to address problem: Pt stable. LFTs have come down as expected. She remains asymptomatic. I will advance her diet to a low-fat, low cholesterol diet. If she tolerates her diet, she may be discharged home. She should continue Ursodiol TID for 4 weeks. After that, she should continue taking it QHS. If she has another attack at home while on the Ursodiol, then we should consider surgery. Discussed with Dr. Harris Will follow along. Please call with questions. Time=15min Subjective Date of service: 12/16/18 Patient Reports: Positive: no new complaints, feels better, tolerating liquids well. Negative: nausea, vomiting Objective Vital Signs - 12hr 12/16/18 12/16/18 04:51 07:24 Temperature 97.5 F L 97.6 F Pulse Rate 45 L 53 L Respiratory 20 18 Rate Blood Pressure 143/56 150/57 O2 Sat by Pulse 97 95 Oximetry - General physical appearance no distress, no pain - Respiratory normal expansion, normal respiratory effort - Abdomen soft, not tender, not distended, not guarding, not rigid - Integumentary no rash, no growths, no abnormal pigmentation - Psychiatric oriented to time, oriented to person, oriented to place, speech is normal, memory intact - Labs 12/16/18 04:10 12/15/18 05:31 Diabetes panel 12/16/18 Range/Units 04:10 AST 83 H (5-40) units/L ALT 158 H (7-56) units/L Alkaline Phosphatase 76 (35-129) units/L Total Protein 6.2 L (6.3-8.2) g/dL Albumin 3.3 L (3.9-5) g/dL Calcium panel 12/16/18 Range/Units 04:10 Albumin 3.3 L (3.9-5) g/dL Adrenal panel 12/16/18 Range/Units 04:10 Total Bilirubin 0.90 (0.1-1.2) mg/dL AST 83 H (5-40) units/L ALT 158 H (7-56) units/L Alkaline Phosphatase 76 (35-129) units/L Total Protein 6.2 L (6.3-8.2) g/dL Albumin 3.3 L (3.9-5) g/dL
--- NOTE | 2018-12-16 12:33 | Discharge Summary ---
Providers - Providers Date of Admission: 12/14/18 01:27 Date of discharge: 12/16/18 Attending physician: NATHAN CELESTE 12/14/18 00:41 Consult to Physician [CONS] Stat Comment: Dr. Manuel spoke with Dr. Nair @ 0019 Consulting Provider: ERIK NAIR Physician Instructions: Reason For Exam: gallstone pancreatitis 12/15/18 16:11 Physical Therapy Evaluation and Treat [CONS] Routine Comment: Reason For Exam: falls [facility] Condition: Stable Hospital course: Patient is a 73 yo woman with history of hypertension, DM type 2, uterine cancer, colon cancer, DVT dx 1 month ago on Xarelto who presented to [facility] ED with abdominal pain that started after eating biscuit egg and cheese [place] from [employer]. * CT abd/pelvis with Contrast IMPRESSION: There is no evidence of intestinal or urinary tract obstruction. No ileus or enteritis. There is a large fixed hiatal hernia. Cholelithiasis. Mild pericholecystic fluid is noted. * pCXR/Abd XRAY IMPRESSION: No acute pulmonary process Nonspecific intestinal gas pattern Large hiatal hernia. Gallstone pancreatitis: She should continue Ursodiol TID for 4 weeks. After that, she should continue taking it QHS. DVT in the right groin: A/C with iv heparin until she starts a diet then switch back to Xarelto Hypertension: low salt diet Diabetes Mellitus type 2: SSI Uterine and colon cancer by history with hypercoagable state Disposition: DC-01 TO HOME OR SELFCARE Time spent for discharge: 35 minutes Core Measure Documentation - Palliative Care Palliative Care/ Comfort Measures: Not Applicable - Core Measures Any of the following diagnoses?: none - VTE Discharge Requirements Deep Vein Thrombosis/Pulmonary Embolism Present on Admission: No Has pt received <5 days of overlap therapy or INR<2.0: No Anticoagulant overlap therapy prescribed at discharge: No Contraindication No Overlap Therapy order at DC: Not Indicated Exam - Physical Exam Narrative exam: Gen: WDWN, NAD, Awake, Alert, Orientated HEENT: NCAT, EOMI, PERRL, OP Clear Neck: supple, no adenopathy, no thyromegaly, no JVD CVS/Heart: RRR, normal S1S2, pulses present bilaterally Chest/Lungs: CTA B, Symmetrical chest expansion, good air entry bilaterally GI/Abdomen: soft, tenderness not distended, good bowel sounds, no rebound /Bladder: no suprapubic tenderness, no CVA or paraspinal tenderness Extermity/Skin: no c/c/e, no obvious rash MSK: FROM x 4 Neuro: CN 2-12 grossly intact, no new focal deficits Psych: calm - Constitutional Vitals: Temp Pulse Resp BP Pulse Ox 97.6 F 53 L 18 150/57 95 12/16/18 07:24 12/16/18 07:24 12/16/18 07:24 12/16/18 07:24 12/16/18 07:24 Plan Activity: other (no strenous activity unless cleared by surgeon) Diet: advance as tolerated Follow up with: JUANITA HARRIS MD [Primary Care Provider] - 3-5 Days ERIK NAIR MD [Staff Physician] - 7 Days Prescriptions: HYDROcodone/APAP 5-325 [[place] 5-325 mg TAB] 1 each PO Q6HR PRN #15 tablet PRN Reason: Pain , Severe (7-10) Ursodiol [Isabel] 250 mg PO TIDWM 30 Days tablet
--- NOTE | 2018-12-16 12:43 | Progress Note ---
Assessment and Plan Assessment and plan: Patient is a 73 yo woman with history of hypertension, DM type 2, uterine cancer, colon cancer, DVT dx 1 month ago on Xarelto who presented to [facility] ED with abdominal pain that started after eating biscuit egg and cheese [place] from [employer]. * CT abd/pelvis with Contrast IMPRESSION: There is no evidence of intestinal or urinary tract obstruction. No ileus or enteritis. There is a large fixed hiat al hernia. Cholelithiasis. Mild pericholecystic fluid is noted. * pCXR/Abd XRAY IMPRESSION: No acute pulmonary process Nonspecific intestinal gas pattern Large hiatal hernia. Gallstone pancreatitis: bowel rest to advance diet, iv pain control, ivf, GS following, pt hesitant for surgery. DVT in the right groin: A/C with iv heparin until she starts a diet then switch back to Xarelto Hypertension: low salt diet Diabetes Mellitus type 2: SSI Uterine and colon cancer by history with hypercoagable state d/c home if tolerated diet History Interval history: Patient was seen and examined. Follow-up on current diagnosis GS pancreatitis. Overnight uneventful. Patient denies any chest pain, shortness breath, or severe headaches. Imaging, nursing note, chart, labs and old chart reviewed. Discussed with patient. Hospitalist Physical - Physical exam Narrative exam: Gen: WDWN, NAD, Awake, Alert, Orientated HEENT: NCAT, EOMI, PERRL, OP Clear Neck: supple, no adenopathy, no thyromegaly, no JVD CVS/Heart: RRR, normal S1S2, pulses present bilaterally Chest/Lungs: CTA B, Symmetrical chest expansion, good air entry bilaterally GI/Abdomen: soft, tenderness not distended, good bowel sounds, no rebound /Bladder: no suprapubic tenderness, no CVA or paraspinal tenderness Extermity/Skin: no c/c/e, no obvious rash MSK: FROM x 4 Neuro: CN 2-12 grossly intact, no new focal deficits Psych: calm - Constitutional Vitals: Temp Pulse Resp BP Pulse Ox 97.6 F 53 L 18 150/57 95 12/16/18 07:24 12/16/18 07:24 12/16/18 07:24 12/16/18 07:24 12/16/18 07:24 Results - Labs CBC & Chem 7: 12/16/18 04:10 12/15/18 05:31 Labs: Laboratory Last Values WBC 7.4 K/mm3 (4.5-11.0) 12/16/18 04:10 RBC 3.95 M/mm3 (3.65-5.03) 12/16/18 04:10 Hgb 11.4 gm/dl (10.1-14.3) 12/16/18 04:10 Hct 34.0 % (30.3-42.9) 12/16/18 04:10 MCV 86 fl (79-97) 12/16/18 04:10 MCH 29 pg (28-32) 12/16/18 04:10 MCHC 34 % (30-34) 12/16/18 04:10 RDW 14.1 % (13.2-15.2) 12/16/18 04:10 Plt Count 219 K/mm3 (140-440) 12/16/18 04:10 Lymph % (Auto) 25.7 % (13.4-35.0) 12/14/18 08:37 [place] % (Auto) 9.6 % (0.0-7.3) H 12/14/18 08:37 Eos % (Auto) 0.8 % (0.0-4.3) 12/14/18 08:37 Baso % (Auto) 0.8 % (0.0-1.8) 12/14/18 08:37 Lymph # 2.0 K/mm3 (1.2-5.4) 12/14/18 08:37 [place] # 0.7 K/mm3 (0.0-0.8) 12/14/18 08:37 Eos # 0.1 K/mm3 (0.0-0.4) 12/14/18 08:37 Baso # 0.1 K/mm3 (0.0-0.1) 12/14/18 08:37 Seg Neutrophils % 63.1 % (40.0-70.0) 12/14/18 08:37 Seg Neutrophils # 4.9 K/mm3 (1.8-7.7) 12/14/18 08:37 PT 17.4 Sec. (12.2-14.9) H 12/14/18 02:13 INR 1.34 (0.87-1.13) H 12/14/18 02:13 APTT 41.5 Sec. (24.2-36.6) H 12/14/18 02:13 Heparin Anti-Xa Level 0.86 U.I./ml (0.3-0.7) H 12/16/18 00:52 Sodium 140 mmol/L (137-145) 12/15/18 05:31 Potassium 3.9 mmol/L (3.6-5.0) 12/15/18 05:31 Chloride 104.1 mmol/L (98-107) 12/15/18 05:31 Carbon Dioxide 23 mmol/L (22-30) 12/15/18 05:31 Anion Gap 17 mmol/L 12/15/18 05:31 BUN 12 mg/dL (7-17) 12/15/18 05:31 Creatinine 1.2 mg/dL (0.7-1.2) 12/15/18 05:31 Estimated GFR 53 ml/min 12/15/18 05:31 BUN/Creatinine Ratio 10 % 12/15/18 05:31 Glucose 136 mg/dL (65-100) H 12/15/18 05:31 POC Glucose 259 (70-105) H 12/16/18 11:25 Calcium 8.8 mg/dL (8.4-10.2) 12/15/18 05:31 Total Bilirubin 0.90 mg/dL (0.1-1.2) 12/16/18 04:10 Direct Bilirubin 0.3 mg/dL (0-0.2) H 12/16/18 04:10 Indirect Bilirubin 0.6 mg/dL 12/16/18 04:10 AST 83 units/L (5-40) H 12/16/18 04:10 ALT 158 units/L (7-56) H 12/16/18 04:10 Alkaline Phosphatase 76 units/L (35-129) 12/16/18 04:10 Troponin T < 0.010 ng/mL (0.00-0.029) 12/13/18 22:48 Total Protein 6.2 g/dL (6.3-8.2) L 12/16/18 04:10 Albumin 3.3 g/dL (3.9-5) L 12/16/18 04:10 Albumin/Globulin Ratio 1.1 % 12/16/18 04:10 Lipase 46 units/L (13-60) 12/15/18 05:31 Nutrition/Malnutrition Assess - Dietary Evaluation Nutrition/Malnutrition Findings: Nutrition Notes Start: 12/14/18 13:53 Freq: Status: Active Protocol: Document 12/14/18 13:53 RM (Rec: 12/14/18 13:55 RM [id number]) Nutrition Notes [place] Body Weight (kg) 0
[2018-12-16] MEDS ORDERED: PLAVIX PO SCH (13:00)
[2018-12-16 13:12] VITALS: BP 165/65
[2018-12-16] MEDS ORDERED: XARELTO PO SCH (22:00)
[2018-12-17] MEDS ORDERED: COZAAR PO SCH (10:00)
[2018-12-17] MEDS ORDERED: NON-FORMULARY (Saxagliptin Hcl [Onglyza] 5 MG) PO SCH (10:00)
[2018-12-17] MEDS ORDERED: NON-FORMULARY (Losartan/Hydrochlorothiazide [Hyzaar 100-25 Tab] 1 TAB) PO SCH (10:00)
[2018-12-17] MEDS ORDERED: TRADJENTA PO SCH (10:00)
[2018-12-17] MEDS ORDERED: HCTZ PO SCH (10:00)
[2018-12-17] MEDS ORDERED: NON-FORMULARY (Rosuvastatin (Nf) 5 MG) PO SCH (10:00)
== END 2018-12-16 16:30 | disposition home or self-care (01) | DRG 439 ==
LOC: ED 16:01 → 3B-SURG 12-14 01:27
PROVIDERS: ADMIT Internal Medicine; ATTEND Internal Medicine
DX: K85.10 Biliary acute pancreatitis without necrosis or infection (principal); I82.401 Acute embolism and thrombosis of unspecified deep veins of right lower extremity; K44.9 Diaphragmatic hernia without obstruction or gangrene; K80.20 Calculus of gallbladder without cholecystitis without obstruction; I10 Essential (primary) hypertension; K21.9 Gastro-esophageal reflux disease without esophagitis; E11.9 Type 2 diabetes mellitus without complications; Z85.038 Personal history of other malignant neoplasm of large intestine; Z88.5 Allergy status to narcotic agent; Z90.49 Acquired absence of other specified parts of digestive tract; Z82.49 Family history of ischemic heart disease and other diseases of the circulatory system; Z85.42 Personal history of malignant neoplasm of other parts of uterus; Z90.710 Acquired absence of both cervix and uterus; Z92.21 Personal history of antineoplastic chemotherapy
CPT/HCPCS: 36415; 74022; 74177; 76705; 80048; 80053; 80076; 82962; 83690; 84484; 85014; 85018; 85025; 85027; 85520; 85610; 85730; 93005; 93010; 96361; 96372; 96374; 96375; G0378; J0500; J1644; J1815; J1885; J2405; J7030; Q9967

== ENCOUNTER 2019-03-28 12:06 | Inpatient (IN) | payer MEDICARE, MEDICAID ==
--- NOTE | 2019-03-28 12:31 | Emergency Department Report ---
Blank Doc - Documentation Documentation: This is a 73-year-old female that presents with CP and SOB. This initial assessment/diagnostic orders/clinical plan/treatment(s) is/are subject to change based on patient's health status, clinical progression and re- assessment by fellow clinical providers in the ED. Further treatment and workup at subsequent clinical providers discretion. Patient/guardians urged not to elope from the ED as their condition may be serious if not clinically assessed and managed. Initial orders include: 1- Patient sent to MAIN ED for further evaluation and treatment 2- labs 3- EKG 4- CXR
[2019-03-28 13:31] LABS: Basophils # (Auto) 0.1 K/mm3 (0.0-0.1); Basophils % (Auto) 0.6 % (0.0-1.8); Eosinophils % (Auto) 0.4 % (0.0-4.3); Hematocrit 41.4 % (30.3-42.9); Hemoglobin 13.7 gm/dl (10.1-14.3); Lymphocytes # (Auto) 1.2 K/mm3 (1.2-5.4); Lymphocytes % (Auto) 11.8 % (13.4-35.0); Mean Corpuscular HGB Conc 33 % (30-34); Mean Corpuscular Volume 85 fl (79-97); Monocytes # (Auto) 0.9 K/mm3 (0.0-0.8); Platelet Count 300 K/mm3 (140-440); Red Blood Count 4.85 M/mm3 (3.65-5.03); Red Cell Distribution Width 14.3 % (13.2-15.2)
--- NOTE | 2019-03-28 13:33 | XRay Report ---
ROUTINE CHEST, TWO VIEWS: HISTORY: chest pain. No recent comparison. A large hiatal hernia is identified heart size and pulmonary vascularity are within normal limits. The lungs are clear. There is moderate to severe thoracolumbar scoliosis. IMPRESSION: Hiatal hernia. Scoliosis. No acute process is identified.
[2019-03-28 13:40] LABS: INR 1.06 (0.87-1.13)
[2019-03-28 13:41] LABS: Partial Thromboplastin Time 51.6 Sec. (24.2-36.6)
[2019-03-28 14:10] LABS: BUN/Creatinine Ratio 14; Blood Urea Nitrogen 19 mg/dL (7-17); Calcium 9.5 mg/dL (8.4-10.2); Hemolysis Index 14
--- NOTE | 2019-03-28 15:13 | Nuclear Medicine Report ---
LUNG SCAN, VENTILATION AND PERFUSION: History: Chest pain. Technique: 5mci of Tc99m MAA was infused for the perfusion images. 15mci XE 133 gas was inhaled for the ventilatory images. Correlation is made with a chest x-ray dated 03/28/19. Findings: Inhalation of Xenon gas demonstrates a normal distribution of the activity throughout both lungs. The wash out phases show moderate retention of the radiotracer in the lower lung zones suggesting obstructive pulmonary disease. After injection of Technetium 99m macroaggregated albumin gamma camera imaging of the lungs in multiple projections demonstrates normal pulmonary contours with a homogeneous distribution of activity. No focal areas of perfusion deficiency are identified. IMPRESSION: Low probability for pulmonary embolus. Findings consistent with obstructive pulmonary disease.
--- NOTE | 2019-03-28 15:36 | Emergency Department Report ---
HPI - General Chief Complaint: Chest Pain Time Seen by Provider: 03/28/19 12:30 - HPI HPI: 73-year-old -[place] female presents to the emergency department with complaint of some midsternal left-sided chest pain and shortness of breath that has been going on since earlier this morning. The chest pain is more of a dull ache or soreness and she has some exacerbations are twinges with deep breathing. She has a history of diabetes, hypertension, previous pulmonary embolism and remote colon cancer and uterine cancer. Her float phlebotomist is Dr. Jerome. She has not had a stress test in 13 years. No recent travel or sick contacts at home. She has not taken anything for her symptoms prior to presentation. The patient is currently anticoagulated on serial troponin. Her primary care physician is Dr. Prabhkaar Liang. ED Past Medical Hx - Past Medical History Previous Medical History?: Yes Hx Hypertension: Yes Hx Heart Attack/AMI: No Hx Congestive Heart Failure: No Hx Diabetes: Yes (SINCE 1984) Hx GERD: Yes Hx Renal Disease: No Hx Sickle Cell Disease: No Hx Arthritis: No Hx Seizures: No Hx Kidney Stones: No Hx Asthma: No Hx COPD: No Hx Dementia: No Additional medical history: colon ca (2010), uterine ca - Surgical History Past Surgical History?: Yes Hx Pacemaker: No Hx Internal Defibrillator: No Hx Cholecystectomy: No Hx Appendectomy: No Hx Breast Surgery: No Additional Surgical History: colectomy, hysterectomy, hernia repair - Social History Smoking Status: Never Smoker Substance Use Type: None - Medications Home Medications: Home Medications Medication Instructions Recorded Confirmed Last Taken Type Clopidogrel Bisulfate [Plavix] 75 mg PO DAILY 09/05/14 10/02/14 09/24/14 History Glimepiride 4 mg PO BID 09/05/14 10/02/14 10/01/14 History Losartan/Hydrochlorothiazide 1 tab PO DAILY 09/05/14 10/02/14 10/02/14 05:00 History [Hyzaar 100-25 TAB] Rosuvastatin (Nf) [Crestor] 5 mg PO DAILY 09/05/14 10/02/14 10/01/14 History Saxagliptin HCl [Onglyza] 5 mg PO DAILY 09/05/14 10/02/14 10/01/14 History Acetaminophen [Acetaminophen TAB] 650 mg PO Q4H PRN #15 tablet 12/16/18 Unknown Rx HYDROcodone/APAP 5-325 [[place] 1 each PO Q6HR PRN #15 tablet 12/16/18 Unknown Rx 5-325 mg TAB] Rivaroxaban [Xarelto] 20 mg PO QDAY #30 tablet 12/16/18 Unknown Rx Ursodiol [Isabel] 250 mg PO TIDWM 30 Days tablet 12/16/18 Unknown Rx ED Review of Systems ROS: Stated complaint: CHEST PAIN/JASIEL Other details as noted in HPI Comment: All other systems reviewed and negative Constitutional: denies: chills, fever Eyes: denies: eye pain, vision change ENT: denies: ear pain Respiratory: shortness of breath. denies: cough Cardiovascular: chest pain. denies: palpitations Gastrointestinal: denies: abdominal pain, vomiting Genitourinary: denies: dysuria, discharge Musculoskeletal: denies: back pain, arthralgia Skin: denies: rash, lesions Neurological: denies: headache, weakness Physical Exam - Physical Exam Vital Signs: Vital Signs 03/28/19 12:31 Temperature 98.5 F Pulse Rate 84 Blood Pressure 123/73 Physical Exam: GENERAL: The patient is well-developed well-nourished. HENT: Normocephalic. Atraumatic. Patient has moist mucous membranes. EYES: Extraocular motions are intact. NECK: Supple. Trachea is midline. CHEST/LUNGS: Clear to auscultation. There is no respiratory distress noted. HEART/CARDIOVASCULAR: Regular. There is no tachycardia. There is no murmur. ABDOMEN: Abdomen is soft, nontender. Patient has normal bowel sounds. There is no abdominal distention. SKIN: Skin is warm and dry. NEURO: The patient is awake, alert, and oriented. The patient is cooperative. The patient has no focal neurologic deficits. The patient has normal speech. MUSCULOSKELETAL: There is no tenderness or deformity. There is no limitation range of motion. There is no evidence of acute injury. ED Course Vital Signs 03/28/19 12:31 Temperature 98.5 F Pulse Rate 84 Blood Pressure 123/73 ED Medical Decision Making - Lab Data Result diagrams: 03/28/19 12:49 03/28/19 12:49 - EKG Data -: EKG Interpreted by Me EKG shows normal: sinus rhythm, axis, intervals, QRS complexes (Q waves to the anterior leads, LVH), ST-T waves Rate: normal - EKG Data When compared to previous EKG there are: previous EKG unavailable Interpretation: unchanged when compared t (12/14/18), other (q waves to the anterior leads) - Radiology Data Radiology results: report reviewed, image reviewed interpreted by me: Chest x-ray does not show any acute process. There are no pleural effusions, obvious pneumonia and there is no pneumothorax. LUNG SCAN, VENTILATION AND PERFUSION: History: Chest pain. Technique: 5mci of Tc99m MAA was infused for the perfusion images. 15mci XE 133 gas was inhaled for the ventilatory images. Correlation is made with a chest x-ray dated 03/28/19. Findings: Inhalation of Xenon gas demonstrates a normal distribution of the activity throughout both lungs. The wash out phases show moderate retention of the radiotracer in the lower lung zones suggesting obstructive pulmonary disease. After injection of Technetium 99m macroaggregated albumin gamma camera imaging of the lungs in multiple projections demonstrates normal pulmonary contours with a homogeneous distribution of activity. No focal areas of perfusion deficiency are identified. IMPRESSION: Low probability for pulmonary embolus. Findings consistent with obstructive pulmonary disease. Transcribed By: TTR Dictated By: NANCY CLAUDIO JR, MD Electronically Authenticated By: NANCY CLAUDIO JR, MD Signed Date/Time: 03/28/19 1508 - Medical Decision Making Patient presents with some acute midsternal left-sided chest pain and shortness of breath. Thus far labs have been unremarkable except for a slightly elevated and equivocal d-dimer. She also has some mild renal insufficiency. A VQ scan was done that was low probability for pulmonary embolism and appears more consistent with COPD. The patient says that it has been about 13 years since she last had a stress test. She usually follows with cardiology. The patient was presented to the admitting hospitalist, Dr. Childress, for admission or further disposition. - Differential Diagnosis NV, PE, COPD, pneumonia Critical Care Time: No Critical care attestation.: If time is entered above; I have spent that time in minutes in the direct care of this critically ill patient, excluding procedure time. ED Disposition Clinical Impression: Acute chest pain Dyspnea Qualifiers: Dyspnea type: shortness of breath Qualified Code(s): R06.02 - Shortness of breath; R06.00 - Dyspnea, unspecified; R06.01 - Orthopnea Disposition: DC-09 OP ADMIT IP TO THIS HOSP Is pt being admited?: Yes Condition: Fair Instructions: Chest Pain (ED) Referrals: PRIMARY CARE, [Primary Care Provider] - 3-5 Days Time of Disposition: 16:25 Heart Score - HEART Score History: Moderately suspicious EKG: Non-specific Age: > 65 Risk factors: > 3 risk factors or hx of atherosclerotic disease Troponin: < normal limit HEART Score: 6 - Critical Actions Critical Actions: 4-6 pts:12-16.6% risk of adverse cardiac event. Should be admitted
--- NOTE | 2019-03-28 15:41 | History and Physical Report ---
History of Present Illness Chief complaint: I dont feel good, my chest gets tight when i breathe real deep History of present illness: 73 YO Female with HTN, DM, Uterine Cancer, Colon Cancer, DVT on Therapeutic Anticoagulation presents to ED for evaluation. Pt states that she has been "feeling sick" over the past 2 days with persistent symptoms over the same time frame. Pt acknowledges generalized weakness, chest discomfort with deep breathing, shortness of breath, as well as decreased exercise tolerance. Pt denies fever, chills, CP, palpitations, NVD, Trauma, skin rash, productive cough, or recent ill contacts. Pt transported to [facility] via private vehicle. Pt seen and evaluated in ED and found to have ARF as well as elevated D dimer,and clinical symptoms consistent with Diastolic CHF/Cardiomyopathy. Pt admitted to medical floor. Past History Past Medical History: cancer, DVT, hypertension Past Surgical History: hysterectomy, hernia repair, bowel surgery Social history: . denies: smoking, alcohol abuse Family history: hypertension Medications and Allergies Allergies Allergy/AdvReac Type Severity Reaction Status Date / Time codeine AdvReac Unknown Unknown Verified 09/05/14 09:01 Home Medications Medication Instructions Recorded Confirmed Last Taken Type Glimepiride 4 mg PO BID 09/05/14 03/28/19 10/01/14 History Losartan/Hydrochlorothiazide 1 tab PO DAILY 09/05/14 03/28/19 10/02/14 05:00 History [Hyzaar 100-25 TAB] Rosuvastatin (Nf) [Crestor] 5 mg PO DAILY 09/05/14 03/28/19 10/01/14 History Saxagliptin HCl [Onglyza] 5 mg PO DAILY 09/05/14 03/28/19 10/01/14 History Empagliflozin [Jardiance] 10 mg PO DAILY 03/28/19 03/28/19 Unknown History Famotidine [Pepcid] 40 mg PO DAILY 03/28/19 03/28/19 Unknown History Rivaroxaban [Xarelto] 20 mg PO DAILY 03/28/19 03/28/19 Unknown History Ursodiol [Isabel] 250 mg PO DAILY 03/28/19 03/28/19 Unknown History metFORMIN [Glucophage] 500 mg PO BID 03/28/19 03/28/19 Unknown History Review of Systems Constitutional: weakness, no weight loss, no weight gain, no fever, no chills Ears, nose, mouth and throat: no ear pain, no ear discharge, no tinnitis, no decreased hearing Breasts: no change in shape, no swelling, no mass Cardiovascular: decreased exercise tolerance, no orthopnea, no palpitations, no rapid/irregular heart beat, no lightheadedness Respiratory: no cough, no cough with sputum, no excessive sputum, no shortness of breath Gastrointestinal: no abdominal pain, no nausea, no diarrhea, no constipation, no change in bowel habits, no hematemesis Genitourinary Female: no pelvic pain, no flank pain, no menorrhagia, no dysuria, no urinary frequency, no urgency Rectal: no pain, no incontinence, no bleeding Musculoskeletal: no neck pain, no shooting arm pain Integumentary: no rash, no pruritis, no redness, no sores, no boils Neurological: no paralysis, no parathesias, no numbness, no tingling, no syncope Psychiatric: no anxiety, no memory loss, no change in sleep habits, no sleep disturbances, no insomnia, no hypersomnia, no change in appetite, no change in libido Endocrine: no cold intolerance, no heat intolerance, no excessive thirst, no polyuria, no nocturia, no excessive sweating Hematologic/Lymphatic: no easy bruising, no easy bleeding Allergic/Immunologic: no wheezing, no persistent infections Exam - Constitutional Vitals: Temp Pulse Resp BP Pulse Ox 98.5 F 84 123/73 03/28/19 12:31 03/28/19 12:31 03/28/19 12:31 General appearance: Present: mild distress - EENT Eyes: Present: PERRL ENT: hearing intact, clear oral mucosa - Neck Neck: Present: supple, normal ROM - Respiratory Respiratory effort: normal Respiratory: bilateral: CTA - Cardiovascular Heart Sounds: Present: S1 & S2. Absent: rub, click - Extremities Extremities: pulses symmetrical, No edema Peripheral Pulses: within normal limits - Abdominal General gastrointestinal: Present: soft, non-tender, non-distended, normal bowel sounds Female genitourinary: Present: normal - Integumentary Integumentary: Present: clear, warm, dry - Musculoskeletal Musculoskeletal: gait normal, strength equal bilaterally - Psychiatric Psychiatric: appropriate mood/affect, intact judgment & insight - Neurologic Neurologic: CNII-XII intact, moves all extremities Results - Labs CBC & Chem 7: 06/12/19 12:49 03/28/19 12:49 Labs: Abnormal lab results 03/28/19 03/28/19 03/28/19 Range/Units 12:49 12:49 12:49 Lymph % (Auto) 11.8 L (13.4-35.0) % [place] % (Auto) 9.0 H (0.0-7.3) % [place] # 0.9 H (0.0-0.8) K/mm3 Seg Neutrophils % 78.2 H (40.0-70.0) % Seg Neutrophils # 7.8 H (1.8-7.7) K/mm3 APTT 51.6 H (24.2-36.6) Sec. D-Dimer 492.14 H (0-234) ng/mlDDU Chloride 97.6 L (98-107) mmol/L Carbon Dioxide 21 L (22-30) mmol/L BUN 19 H (7-17) mg/dL Creatinine 1.4 H (0.7-1.2) mg/dL Glucose 170 H (65-100) mg/dL Assessment and Plan - Patient Problems (1) ARF (acute renal failure) with tubular necrosis Current Visit: Yes Status: Acute Plan to address problem: IVR resuscitation therapy, monitor uop q shift, repeat bmp in am, monitor serum creatnine (2) History of DVT (deep vein thrombosis) Current Visit: Yes Status: Acute (3) Dyspnea Current Visit: Yes Status: Acute Qualifiers: Dyspnea type: shortness of breath Qualified Code(s): R06.02 - Shortness of breath; R06.00 - Dyspnea, unspecified; R06.01 - Orthopnea Plan to address problem: D dimer, chext x ray, VQ scan, supplemental oxygen, pulse oximetry (4) Atypical chest pain Current Visit: Yes Status: Acute Plan to address problem: D dimer, chest x ray, cardiac enzymes, PPI therapy, Echo (5) Diastolic CHF Current Visit: Yes Status: Suspected Plan to address problem: Echo, remote telemetry, blood pressure control, (6) DVT prophylaxis Current Visit: Yes Status: Acute Plan to address problem: SCD to BLE while in bed, continue therapeutic anticoagulation.
[2019-03-28] MEDS ORDERED: ZOFRAN IV PRN (16:49)
[2019-03-28] MEDS ORDERED: SODIUM CHLORIDE FLUSH SYRINGE 10 ML IV PRN (16:49)
[2019-03-28] MEDS ORDERED: PERCOCET 5/325 PO PRN (16:49)
[2019-03-28] MEDS ORDERED: MORPHINE IV PRN (16:49)
[2019-03-28] MEDS ORDERED: TYLENOL PO PRN (16:58)
[2019-03-28] MEDS: PEPCID PO SCH (22:31)
[2019-03-28] MEDS: SODIUM CHLORIDE FLUSH SYRINGE 10 ML IV SCH (22:31)
[2019-03-29] MEDS ORDERED: NON-FORMULARY (Rosuvastatin (Nf) 5 MG) PO SCH (10:00)
[2019-03-29] MEDS ORDERED: URSO PO SCH (10:00)
[2019-03-29] MEDS ORDERED: NON-FORMULARY (Losartan/Hydrochlorothiazide [Hyzaar 100-25 Tab] 1 TAB) PO SCH (10:00)
[2019-03-29] MEDS ORDERED: NON-FORMULARY (Famotidine [Pepcid] 40 MG) PO SCH (10:00)
[2019-03-29] MEDS ORDERED: XARELTO PO SCH (10:00)
[2019-03-29] MEDS: COZAAR PO SCH (10:03)
[2019-03-29] MEDS: HCTZ PO SCH (10:04)
[2019-03-29] MEDS: SODIUM CHLORIDE FLUSH SYRINGE 10 ML IV SCH ×2 (10:04→22:35)
[2019-03-29] MEDS: PEPCID PO SCH ×2 (10:04→22:34)
--- NOTE | 2019-03-29 11:08 | Consultation ---
History of Present Illness Consult date: 03/29/19 Consult reason: chest pain History of present illness: The patient is a 73-year-old woman presented to the emergency room with 2 days of intermittent chest pain. Her chest pain is located to the left mid chest, and has consistently been pleuritic and aggravated by cough. It is also positional. In the emergency room, ECG was normal sinus rhythm, normal ECG with no ischemic changes. She had a VQ scan which was low probability for pulmonary embolism. A chest x-ray showed changes of COPD, but no interstitial edema, and normal sized cardiac silhouette. The most significant finding on chest x-ray was a large hiatal hernia. 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 She has been fully compliant anticoagulation therapy. Cardiac history of fairly mild nonischemic cardiomyopathy, which has resolved on medical therapy has been consistently followed in the outpatient. A cardiac catheterization in 2011 demonstrated no significant coronary disease, but left ventricular ejection fraction approximately 40%. Serial echocardiograms since then, including one done just last month now show a normal ejection fraction of 60%. At this time, patient is comfortable on the medical floor, one dose when she might be able to go home. She still experiences some left chest discomfort on deep inspiration. Past History Past Medical History: cancer, DVT, heart failure, hypertension Past Surgical History: hysterectomy, hernia repair, bowel surgery Social history: . denies: smoking, alcohol abuse Family history: hypertension Medications and Allergies Allergies Allergy/AdvReac Type Severity Reaction Status Date / Time codeine AdvReac Unknown Unknown Verified 09/05/14 09:01 Home Medications Medication Instructions Recorded Confirmed Last Taken Type Glimepiride 4 mg PO BID 09/05/14 03/28/19 10/01/14 History Losartan/Hydrochlorothiazide 1 tab PO DAILY 09/05/14 03/28/19 10/02/14 05:00 History [Hyzaar 100-25 TAB] Rosuvastatin (Nf) [Crestor] 5 mg PO DAILY 09/05/14 03/28/19 10/01/14 History Saxagliptin HCl [Onglyza] 5 mg PO DAILY 09/05/14 03/28/19 10/01/14 History Empagliflozin [Jardiance] 10 mg PO DAILY 03/28/19 03/28/19 Unknown History Famotidine [Pepcid] 40 mg PO DAILY 03/28/19 03/28/19 Unknown History Rivaroxaban [Xarelto] 20 mg PO DAILY 03/28/19 03/28/19 Unknown History Ursodiol [Isabel] 250 mg PO DAILY 03/28/19 03/28/19 Unknown History metFORMIN [Glucophage] 500 mg PO BID 03/28/19 03/28/19 Unknown History Active Meds: Active Medications Acetaminophen (Tylenol) 650 mg PO Q4H PRN PRN Reason: Pain MILD(1-3)/Fever >100.5/MONTERO Atorvastatin Calcium (Lipitor) 10 mg PO QHS [facility] Last Admin: 03/28/19 22:30 Dose: 10 mg Documented by: Famotidine (Pepcid) 20 mg PO BID [facility] Last Admin: 03/29/19 10:04 Dose: 20 mg Documented by: Hydrochlorothiazide (Hctz) 25 mg PO QDAY [facility] Last Admin: 03/29/19 10:04 Dose: 25 mg Documented by: Losartan Potassium (Cozaar) 100 mg PO QDAY [facility] Last Admin: 03/29/19 10:03 Dose: 100 mg Documented by: Morphine Sulfate (Morphine) 2 mg IV Q4H PRN PRN Reason: Pain, Moderate (4-6) Ondansetron HCl (Zofran) 4 mg IV Q8H PRN PRN Reason: Nausea And Vomiting Oxycodone/Acetaminophen (Percocet 5/325) 1 tab PO Q6H PRN PRN Reason: Pain, Moderate (4-6) Rivaroxaban (Xarelto) 20 mg PO DAILY [facility]; Protocol Sodium Chloride (Sodium Chloride Flush Syringe 10 Ml) 10 ml IV BID [facility] Last Admin: 03/29/19 10:04 Dose: 10 ml Documented by: Sodium Chloride (Sodium Chloride Flush Syringe 10 Ml) 10 ml IV PRN PRN PRN Reason: LINE FLUSH Ursodiol (Isabel) 250 mg PO DAILY [facility] Review of Systems Cardiovascular: chest pain, shortness of breath, no orthopnea, no palpitations, no rapid/irregular heart beat, no edema, no syncope, no lightheadedness Physical Examination Vital Signs Temp Pulse BP 98.5 F 84 123/73 03/28/19 12:31 03/28/19 12:31 03/28/19 12:31 General appearance: no acute distress HEENT: Positive: PERRL Neck: Positive: neck supple Cardiac: Positive: Reg Rate and Rhythm Lungs: Positive: clear to auscultation Neuro: Positive: Grossly Intact Abdomen: Positive: Soft Female genitourinary: deferred Skin: Positive: Clear Extremities: Absent: edema Results 03/28/19 12:49 03/28/19 12:49 Coagulation 03/28/19 Range/Units 12:49 PT 14.5 (12.2-14.9) Sec. INR 1.06 (0.87-1.13) APTT 51.6 H (24.2-36.6) Sec. CBC 03/28/19 Range/Units 12:49 WBC 10.0 (4.5-11.0) K/mm3 RBC 4.85 (3.65-5.03) M/mm3 Hgb 13.7 (10.1-14.3) gm/dl Hct 41.4 (30.3-42.9) % Plt Count 300 (140-440) K/mm3 Lymph # 1.2 (1.2-5.4) K/mm3 [place] # 0.9 H (0.0-0.8) K/mm3 Eos # 0.0 (0.0-0.4) K/mm3 Baso # 0.1 (0.0-0.1) K/mm3 Comprehensive Metabolic Panel 03/28/19 Range/Units 12:49 Sodium 139 (137-145) mmol/L Potassium 4.4 (3.6-5.0) mmol/L Chloride 97.6 L (98-107) mmol/L Carbon Dioxide 21 L (22-30) mmol/L BUN 19 H (7-17) mg/dL Creatinine 1.4 H (0.7-1.2) mg/dL Glucose 170 H (65-100) mg/dL Calcium 9.5 (8.4-10.2) mg/dL EKG interpretations - Telemetry EKG Rhythm: Sinus Rhythm Assessment and Plan - Patient Problems (1) Chest pain made worse by breathing Current Visit: Yes Status: Acute Plan to address problem: The patient's chest pain appears musculoskeletal. Despite a history of venous thromboembolism, her current VQ scan is low probability. In addition, she is on full chronic uninterrupted anticoagulation with Xarelto. Costochondritis will appear to be the most likely diagnosis. Recommend a trial of intravenous Toradol, anticipate discharge tomorrow when chest pain is resolved. No cardiac workup is indicated for chest pain due to costochondritis.
--- NOTE | 2019-03-29 11:10 | Consultation ---
History of Present Illness Consult date: 03/29/19 Consult reason: chest pain History of present illness: This is a 73-year old female with a resolving non-ischemic cardiomyopathy, ejection fraction 40% in 2012, now 60% in 2016 and her most recent echocardiogram. She has a history of chronic lower extremity DVT and is on Xarelto for detention anticoagulation. Patient presented to this hospital with complaints of chest pain, worse with deep breathing, coughs and position changes. Cycled cardiac troponins were normal and her ECG is benign, no acute ischemic changes. A cardiac consultation has been requested for further evaluation. Past History Past Medical History: cancer, DVT, hypertension Past Surgical History: hysterectomy, hernia repair, bowel surgery Social history: . denies: smoking, alcohol abuse Family history: hypertension Medications and Allergies Allergies Allergy/AdvReac Type Severity Reaction Status Date / Time codeine AdvReac Unknown Unknown Verified 09/05/14 09:01 Home Medications Medication Instructions Recorded Confirmed Last Taken Type Glimepiride 4 mg PO BID 09/05/14 03/28/19 10/01/14 History Losartan/Hydrochlorothiazide 1 tab PO DAILY 09/05/14 03/28/19 10/02/14 05:00 History [Hyzaar 100-25 TAB] Rosuvastatin (Nf) [Crestor] 5 mg PO DAILY 09/05/14 03/28/19 10/01/14 History Saxagliptin HCl [Onglyza] 5 mg PO DAILY 09/05/14 03/28/19 10/01/14 History Empagliflozin [Jardiance] 10 mg PO DAILY 03/28/19 03/28/19 Unknown History Famotidine [Pepcid] 40 mg PO DAILY 03/28/19 03/28/19 Unknown History Rivaroxaban [Xarelto] 20 mg PO DAILY 03/28/19 03/28/19 Unknown History Ursodiol [Isabel] 250 mg PO DAILY 03/28/19 03/28/19 Unknown History metFORMIN [Glucophage] 500 mg PO BID 03/28/19 03/28/19 Unknown History Active Meds: Active Medications Acetaminophen (Tylenol) 650 mg PO Q4H PRN PRN Reason: Pain MILD(1-3)/Fever >100.5/MONTERO Atorvastatin Calcium (Lipitor) 10 mg PO QHS [facility] Last Admin: 03/28/19 22:30 Dose: 10 mg Documented by: Famotidine (Pepcid) 20 mg PO BID [facility] Last Admin: 03/29/19 10:04 Dose: 20 mg Documented by: Hydrochlorothiazide (Hctz) 25 mg PO QDAY [facility] Last Admin: 03/29/19 10:04 Dose: 25 mg Documented by: Losartan Potassium (Cozaar) 100 mg PO QDAY [facility] Last Admin: 03/29/19 10:03 Dose: 100 mg Documented by: Morphine Sulfate (Morphine) 2 mg IV Q4H PRN PRN Reason: Pain, Moderate (4-6) Ondansetron HCl (Zofran) 4 mg IV Q8H PRN PRN Reason: Nausea And Vomiting Oxycodone/Acetaminophen (Percocet 5/325) 1 tab PO Q6H PRN PRN Reason: Pain, Moderate (4-6) Rivaroxaban (Xarelto) 20 mg PO DAILY [facility]; Protocol Sodium Chloride (Sodium Chloride Flush Syringe 10 Ml) 10 ml IV BID [facility] Last Admin: 03/29/19 10:04 Dose: 10 ml Documented by: Sodium Chloride (Sodium Chloride Flush Syringe 10 Ml) 10 ml IV PRN PRN PRN Reason: LINE FLUSH Ursodiol (Isabel) 250 mg PO DAILY [facility] Physical Examination Vital Signs Temp Pulse BP 98.5 F 84 123/73 03/28/19 12:31 03/28/19 12:31 03/28/19 12:31 General appearance: no acute distress HEENT: Positive: PERRL Neck: Positive: trachea midline Cardiac: Positive: Reg Rate and Rhythm Lungs: Positive: Decreased Breath Sounds Neuro: Positive: Grossly Intact Results 03/28/19 12:49 03/28/19 12:49 Coagulation 03/28/19 Range/Units 12:49 PT 14.5 (12.2-14.9) Sec. INR 1.06 (0.87-1.13) APTT 51.6 H (24.2-36.6) Sec. CBC 03/28/19 Range/Units 12:49 WBC 10.0 (4.5-11.0) K/mm3 RBC 4.85 (3.65-5.03) M/mm3 Hgb 13.7 (10.1-14.3) gm/dl Hct 41.4 (30.3-42.9) % Plt Count 300 (140-440) K/mm3 Lymph # 1.2 (1.2-5.4) K/mm3 [place] # 0.9 H (0.0-0.8) K/mm3 Eos # 0.0 (0.0-0.4) K/mm3 Baso # 0.1 (0.0-0.1) K/mm3 Comprehensive Metabolic Panel 03/28/19 Range/Units 12:49 Sodium 139 (137-145) mmol/L Potassium 4.4 (3.6-5.0) mmol/L Chloride 97.6 L (98-107) mmol/L Carbon Dioxide 21 L (22-30) mmol/L BUN 19 H (7-17) mg/dL Creatinine 1.4 H (0.7-1.2) mg/dL Glucose 170 H (65-100) mg/dL Calcium 9.5 (8.4-10.2) mg/dL Assessment and Plan Chest pain, musculoskeletal NICMP, resolving EF 60% by echo 01/2019 Hypertension Diabetes Chronic DVT on xarelto as an outpatient
[2019-03-29] MEDS ORDERED: TORADOL IV PRN (11:12)
--- NOTE | 2019-03-29 13:36 | Progress Note ---
Assessment and Plan Assessment and plan: 73 YO Female with HTN, DM, Uterine Cancer, Colon Cancer, DVT on Therapeutic Anticoagulation presents to ED for evaluation. Pt states that she has been "feeling sick" over the past 2 days with persistent symptoms over the same time frame. Pt acknowledges generalized weakness, chest discomfort with deep br eathing, shortness of breath, as well as decreased exercise tolerance. Pt denies fever, chills, CP, palpitations, NVD, Trauma, skin rash, productive cough, or recent ill contacts. Pt transported to [facility] via private vehicle. Pt seen and evaluated in ED and found to have ARF as well as elevated D dimer,and clinical symptoms consistent with Diastolic CHF/Cardiomyopathy. Pt admitted to medical floor. (1) ARF (acute renal failure) with tubular necrosis Current Visit: Yes Status: Acute Plan to address problem: continue IVR resuscitation therapy, monitor uop q shift, repeat bmp in am, monitor serum creatnine (2) History of DVT (deep vein thrombosis) Current Visit: Yes Status: Acute Fully anticoagulated on xarelto and is complaint (3) Dyspnea Current Visit: Yes Status: Acute Qualifiers: Dyspnea type: shortness of breath Qualified Code(s): R06.02 - Shortness of breath; R06.00 - Dyspnea, unspecified; R06.01 - Orthopnea Plan to address problem: D dimer elevated but V/Q low probablity, (4) Atypical chest pain Secondary to costochondritis. Cardiology evaluated, will trial Toradol IV. This is to be done in house for adequate monitoring of renal function and discussed with the patient. Per cardiology patient HAD CARDIAC CATH IN 2011 demonstrated no significant coronary disease, but left ventricular ejection fraction approximately 40%. Serial echocardiograms since then, including one done just last month now show a normal ejection fraction of 60%. (5) Diastolic CHF Current Visit: Yes Status: Suspected Plan to address problem: Echo, remote telemetry, blood pressure control, (6) DVT prophylaxis Current Visit: Yes Status: Acute Plan to address problem: SCD to BLE while in bed, continue therapeutic anticoagulation. History Interval history: Patient seen and examined, continues to complain of pleuritic pain but improving today. No associated shortness of breath Hospitalist Physical - Physical exam Narrative exam: VITAL SIGNS: Reviewed. GENERAL: The patient appeared well nourished and normally developed, Vital signs as documented. HEAD: No signs of head trauma. EYES: Pupils are equal. Extraocular motions intact. EARS: Hearing grossly intact. MOUTH: Oropharynx is normal. NECK: No adenopathy, no JVD. CHEST: Chest with clear breath sounds bilaterally. No wheezes, rales, or rhonchi. CARDIAC: Regular rate and rhythm. But bradycardia. S1 and S2, without murmurs, gallops, or rubs. VASCULAR: No Edema. Peripheral pulses normal and equal in all extremities. ABDOMEN: Soft, non tender and non distended. No rebound or guarding, and no masses palpated. Bowel Sounds normal. MUSCULOSKELETAL: Good range of motion of all major joints. Extremities without clubbing, cyanosis or edema. NEUROLOGIC EXAM: Alert and oriented x 3 No focal sensory or strength deficits. Speech normal. Follows commands. PSYCHIATRIC: Mood normal. SKIN: No rash or lesions. - Constitutional Vitals: Temp Pulse Resp BP Pulse Ox 98.0 F 59 L 20 136/68 95 03/29/19 07:56 03/29/19 10:03 03/29/19 07:56 03/29/19 10:03 03/29/19 07:56 General appearance: Present: no acute distress Results - Labs CBC & Chem 7: 03/28/19 12:49 03/30/19 04:58 Labs: Laboratory Last Values WBC 10.0 K/mm3 (4.5-11.0) 03/28/19 12:49 RBC 4.85 M/mm3 (3.65-5.03) 03/28/19 12:49 Hgb 13.7 gm/dl (10.1-14.3) 03/28/19 12:49 Hct 41.4 % (30.3-42.9) 03/28/19 12:49 MCV 85 fl (79-97) 03/28/19 12:49 MCH 28 pg (28-32) 03/28/19 12:49 MCHC 33 % (30-34) 03/28/19 12:49 RDW 14.3 % (13.2-15.2) 03/28/19 12:49 Plt Count 300 K/mm3 (140-440) 03/28/19 12:49 Lymph % (Auto) 11.8 % (13.4-35.0) L 03/28/19 12:49 [place] % (Auto) 9.0 % (0.0-7.3) H 03/28/19 12:49 Eos % (Auto) 0.4 % (0.0-4.3) 03/28/19 12:49 Baso % (Auto) 0.6 % (0.0-1.8) 03/28/19 12:49 Lymph # 1.2 K/mm3 (1.2-5.4) 03/28/19 12:49 [place] # 0.9 K/mm3 (0.0-0.8) H 03/28/19 12:49 Eos # 0.0 K/mm3 (0.0-0.4) 03/28/19 12:49 Baso # 0.1 K/mm3 (0.0-0.1) 03/28/19 12:49 Seg Neutrophils % 78.2 % (40.0-70.0) H 03/28/19 12:49 Seg Neutrophils # 7.8 K/mm3 (1.8-7.7) H 03/28/19 12:49 PT 14.5 Sec. (12.2-14.9) 03/28/19 12:49 INR 1.06 (0.87-1.13) 03/28/19 12:49 APTT 51.6 Sec. (24.2-36.6) H 03/28/19 12:49 492.14 ng/mlDDU (0-234) H 03/28/19 12:49 Sodium 139 mmol/L (137-145) 03/28/19 12:49 Potassium 4.4 mmol/L (3.6-5.0) 03/28/19 12:49 Chloride 97.6 mmol/L (98-107) L 03/28/19 12:49 Carbon Dioxide 21 mmol/L (22-30) L 03/28/19 12:49 25 mmol/L 03/28/19 12:49 BUN 19 mg/dL (7-17) H 03/28/19 12:49 1.4 mg/dL (0.7-1.2) H 03/28/19 12:49 Estimated GFR 44 ml/min 03/28/19 12:49 14 % 03/28/19 12:49 Glucose 170 mg/dL (65-100) H 03/28/19 12:49 Calcium 9.5 mg/dL (8.4-10.2) 03/28/19 12:49 < 0.010 ng/mL (0.00-0.029) 03/28/19 15:49 Active Medications - Current Medications Current Medications: Generic Name Dose Route Start Last Admin Trade Name Freq PRN Reason Stop Dose Admin Acetaminophen 650 mg 03/28/19 16:58 Tylenol PO Q4H PRN Pain MILD(1-3)/Fever >100.5/MONTERO Atorvastatin Calcium 10 mg 03/28/19 22:00 03/28/19 22:30 Lipitor PO 10 mg QHS [facility] Administration Famotidine 20 mg 03/28/19 22:00 03/29/19 10:04 Pepcid PO 20 mg BID [facility] Administration Hydrochlorothiazide 25 mg 03/29/19 10:00 03/29/19 10:04 Hctz PO 25 mg QDAY [facility] Administration Ketorolac Tromethamine 30 mg 03/29/19 12:00 Toradol IV 03/31/19 11:59 Q8H [facility] Losartan Potassium 100 mg 03/29/19 10:00 03/29/19 10:03 Cozaar PO 100 mg QDAY [facility] Administration Morphine Sulfate 2 mg 03/28/19 16:49 Morphine IV Q4H PRN Pain, Moderate (4-6) Ondansetron HCl 4 mg 03/28/19 16:49 Zofran IV Q8H PRN Nausea And Vomiting Oxycodone/Acetaminophen 1 tab 03/28/19 16:49 Percocet 5/325 PO Q6H PRN Pain, Moderate (4-6) Rivaroxaban 20 mg 03/29/19 10:00 Xarelto PO DAILY [facility] Protocol Sodium Chloride 10 ml 03/28/19 22:00 03/29/19 10:04 Sodium Chloride Flush Syringe 10 Ml IV 10 ml BID [facility] Administration Sodium Chloride 10 ml 03/28/19 16:49 Sodium Chloride Flush Syringe 10 Ml IV PRN PRN LINE FLUSH Ursodiol 250 mg 03/29/19 10:00 Isabel PO DAILY [facility]
[2019-03-29] MEDS ORDERED: NACL 0.9% 1000 ML 1,000 ML IV SCH (14:00)
[2019-03-29] MEDS: TORADOL IV SCH ×2 (15:04→22:34)
[2019-03-30] MEDS: TORADOL IV SCH (04:19)
[2019-03-30 05:38] LABS: Calcium 8.4 mg/dL (8.4-10.2)
--- NOTE | 2019-03-30 07:33 | Discharge Summary ---
Providers - Providers Date of Admission: 03/28/19 16:49 Attending physician: OLIVE ALVARADO MD 03/29/19 10:35 Consult to Physician [CONS] Routine Comment: doctor seen patient Consulting Provider: BRADLY LOPEZ Physician Instructions: Reason For Exam: chest pain Primary care physician: SANDRINE MORALES Hospitalization Reason for admission: CHEST PAIN Condition: Stable Hospital course: 73 YO Female with HTN, DM, Uterine Cancer, Colon Cancer, DVT on Therapeutic Anticoagulation presents to ED for evaluation. Pt states that she has been "f eeling sick" over the past 2 days with persistent symptoms over the same time frame. Pt acknowledges generalized weakness, chest discomfort with deep breathing, shortness of breath, as well as decreased exercise tolerance. Pt denies fever, chills, CP, palpitations, NVD, Trauma, skin rash, productive cough, or recent ill contacts. Pt transported to [facility] via private vehicle. Pt seen and evaluated in ED and found to have ARF as well as elevated D dimer,and clinical symptoms consistent with Diastolic CHF/Cardiomyopathy. Pt admitted to medical floor. Cardiology evaluated, will trial Toradol IV. This is to be done in house for adequate monitoring of renal function and discussed with the patient. Per cardiology patient HAD CARDIAC CATH IN 2011 demonstrated no significant coronary disease, but left ventricular ejection fraction approximately 40%. Serial echocardiograms since then, including one done just last month now show a normal ejection fraction of 60%. Patient symptoms improved. she was advised about finding of COPD on imaging and the large hiatail hernia. She will follow with Her PCP for further work up of both. I have also recommended repeat renal function in 2-3 days with her PCP Pleuritic chest pain Secondary to costochondritis. Costochondritis ARF (acute renal failure) with tubular necrosis History of DVT (deep vein thrombosis) Dyspnea Chronic stable Diastolic CHF Hiatial hernia Disposition: TO HOME OR SELFCARE Time spent for discharge: 35 mins Core Measure Documentation - Palliative Care Palliative Care/ Comfort Measures: Not Applicable - Core Measures Any of the following diagnoses?: none Exam - Physical Exam Narrative exam: VITAL SIGNS: Reviewed. GENERAL: The patient appeared well nourished and normally developed, Vital signs as documented. HEAD: No signs of head trauma. EYES: Pupils are equal. Extraocular motions intact. EARS: Hearing grossly intact. MOUTH: Oropharynx is normal. NECK: No adenopathy, no JVD. CHEST: Chest with clear breath sounds bilaterally. No wheezes, rales, or rhonchi. CARDIAC: Regular rate and rhythm. But bradycardia. S1 and S2, without murmurs, gallops, or rubs. VASCULAR: No Edema. Peripheral pulses normal and equal in all extremities. ABDOMEN: Soft, non tender and non distended. No rebound or guarding, and no masses palpated. Bowel Sounds normal. MUSCULOSKELETAL: Good range of motion of all major joints. Extremities without clubbing, cyanosis or edema. NEUROLOGIC EXAM: Alert and oriented x 3 No focal sensory or strength deficits. Speech normal. Follows commands. PSYCHIATRIC: Mood normal. SKIN: No rash or lesions. - Constitutional Vitals: Temp Pulse Resp BP Pulse Ox 98.5 F 59 L 18 143/71 98 03/30/19 02:32 03/30/19 02:32 03/30/19 04:49 03/30/19 02:32 03/30/19 02:32 Plan Activity: advance as tolerated, fall precautions Diet: low fat Special Instructions: record daily weights, record daily BP diary Additional Instructions: repeat renal function test with your Primary doctor in 3-5 days. Also PCP to arrange for evaluation of hernia. follow with pulmonary for PFT and evaluation of COPD NOTED ON XRAY Follow up with: PRIMARY CARE, [Referring] - 3-5 Days BRADLY LOPEZ MD [Staff Physician] - 7 Days CHIARA AWAD MD [Staff Physician] - 7 Days Prescriptions: Prednisone [predniSONE 5 mg (6-Day Pack, 21 Tabs)] 5 mg PO .TAPER #1 tab.ds.pk traMADol [Ultram] 50 mg PO Q6HR PRN #14 tablet PRN Reason: Pain
[2019-03-30] MEDS ORDERED: NACL 0.9% 1000 ML 1,000 ML IV SCH (08:00)
[2019-03-30] MEDS ORDERED: XARELTO PO SCH (08:00)
[2019-03-30 08:06] VITALS: BP 136/52
[2019-03-30] MEDS ORDERED: PEPCID PO SCH (10:00)
[2019-03-30] MEDS: HCTZ PO SCH (10:27)
[2019-03-30] MEDS: COZAAR PO SCH (10:27)
[2019-03-30] MEDS: SODIUM CHLORIDE FLUSH SYRINGE 10 ML IV SCH (10:28)
== END 2019-03-30 12:30 | disposition home health service (06) | DRG 205 ==
LOC: ED 12:06 → 2B-ACE 16:49
PROVIDERS: ADMIT Internal Medicine; ATTEND Internal Medicine
DX: M94.0 Chondrocostal junction syndrome [Tietze] (principal); N17.0 Acute kidney failure with tubular necrosis; I50.22 Chronic systolic (congestive) heart failure; I42.9 Cardiomyopathy, unspecified; I11.0 Hypertensive heart disease with heart failure; E11.9 Type 2 diabetes mellitus without complications; K21.9 Gastro-esophageal reflux disease without esophagitis; K44.9 Diaphragmatic hernia without obstruction or gangrene; Z86.711 Personal history of pulmonary embolism; Z85.038 Personal history of other malignant neoplasm of large intestine; Z85.42 Personal history of malignant neoplasm of other parts of uterus; Z90.710 Acquired absence of both cervix and uterus; Z90.49 Acquired absence of other specified parts of digestive tract; Z79.84 Long term (current) use of oral hypoglycemic drugs; Z86.718 Personal history of other venous thrombosis and embolism
CPT/HCPCS: 36415; 71046; 78582; 80048; 84484; 85025; 85379; 85610; 85730; 93005; 93010; 96374; 99285; G0378; A9270-GY; A9540; A9558; J1885; J7030